=== PATIENT | female | born 1960 | race Caucasian/White ===

== ENCOUNTER 2020-12-14 06:30 | Outpatient (REF) | payer BC, SELFPAY ==
[2020-12-14 07:21] LABS: MANUAL DIFF FLAG NO
[2020-12-14 07:27] LABS: Basophils Percent Auto 0.6 % (0-2); Eosinophils Absolute Auto 0.2 X10*3/uL (0.0-0.4); Eosinophils Percent Auto 4.4 % (0-4); Hematocrit 41.4 % (37-47); Hemoglobin 14.1 g/dl (12.0-16.0); Imm Gran Abs Auto 0.03 X10*3/uL (0.00-0.03); Imm Gran Pct Auto 0.6 % (0.0-0.4); Lymphocytes Absolute Auto 2.3 X10*3/uL (1.2-4.9); Lymphocytes Percent Auto 42.2 % (20-40); Mean Corpuscular HGB Conc 34.1 g/dl (31.0-35.0); Mean Corpuscular Hemoglobin 33.1 pg (27.0-33.0); Mean Corpuscular Volume 97.2 fL (80-98); Mean Platelet Volume 9.2 fL (9.4-12.3); Monocytes Absolute Auto 0.4 X10*3/uL (0.1-1.2); Monocytes Percent Auto 7.7 % (2-11); Neutrophils Absolute Auto 2.4 X10*3/uL (2.0-8.3); Neutrophils Percent Auto 44.5 % (45-73); Platelet Count 265 X10*3/uL (160-400); Red Blood Count 4.26 X10*6/uL (4.20-5.50); Red Cell Distribution Width 12.1 % (11.0-16.0); White Blood Count 5.4 X10*3/uL (4.8-10.8)
[2020-12-14 07:55] LABS: Alanine Aminotransferase 26 U/L (0-31); Anion Gap 11 (12-20); Aspartate Amino Transferase 29 U/L (5-31); Bilirubin Total 0.7 mg/dL (0.0-1.0); Blood Urea Nitrogen 8 mg/dL (9-16); Calcium 9.2 mg/dL (8.4-10.2); Carbon Dioxide 33 mmol/L (22-29); Chloride 104 mmol/L (96-108); Estimated Glomerular Filt Rate > 60; Glucose Fasting 92 mg/dL (60-99); Potassium 4.9 mmol/L (3.3-5.1); Sodium 143 mmol/L (135-145)
[2020-12-14 07:56] LABS: Albumin Level 4.2 g/dL (3.5-5.0); Alkaline Phosphatase 90 U/L (39-117); Cholesterol 258 mg/dL; HDL Cholesterol 89 mg/dL; LDL Cholesterol Calculated 157 mg/dl; Total Protein 6.8 g/dL (6.5-8.0); Triglycerides 61 mg/dL
[2020-12-14 08:12] LABS: TSH reflex Free T4 1.99 uIU/mL (0.32-4.0)
== END 2020-12-14 06:31 | disposition home or self-care (01) ==
LOC: HO.LAB 06:30
PROVIDERS: PCP Physician Assistant; Visit Provider Physician Assistant
DX: I10 Essential (primary) hypertension (principal); E78.00 Pure hypercholesterolemia, unspecified; E78.5 Hyperlipidemia, unspecified
CPT/HCPCS: 36415; 80053; 80061; 84443; 85025

== ENCOUNTER 2021-03-01 10:16 | Outpatient (REF) | payer BC, SELFPAY ==
--- NOTE | ~2021-03-01 | XR_ITS ---
EXAMINATION: XR FOOT, LEFT CLINICAL INFORMATION: Pain. COMPARISON: None TECHNIQUE: AP, lateral, and oblique views of the left foot. FINDINGS: There are small avulsion fracture fragments proximal end proximal phalanx second and third digits with intra-articular extension. No additional fractures seen. The ankle mortise and subtalar joints are normal. The soft tissues are normal XR/XR foot LT 2V IMPRESSION: Small avulsion fracture fragments proximal end proximal phalanx second and third digits with intra-articular extension.
== END 2021-03-01 10:17 | disposition home or self-care (01) ==
LOC: HO.XRAY 10:16
PROVIDERS: PCP Physician Assistant; Visit Provider Physician Assistant
DX: M79.672 Pain in left foot (principal)
CPT/HCPCS: 73620

== ENCOUNTER 2021-09-08 09:27 | Outpatient (REF) | payer BC, SELFPAY | END 2021-09-08 09:28 | disposition home or self-care (01) | LOC: HO.HMGCLDS 09:27 | PROVIDERS: PCP Physician Assistant; Visit Provider Internal Medicine | DX: Z20.822 Contact with and (suspected) exposure to COVID-19 (principal) | CPT/HCPCS: C9803; U0003; U0005 ==

== ENCOUNTER 2021-11-14 16:46 | Outpatient (REF) | payer SELFPAY ==
--- NOTE | ~2021-11-14 | XR_ITS ---
EXAMINATION: XR HAND/WRIST, RIGHT CLINICAL INFORMATION: Pain in the right wrist. COMPARISON: None. TECHNIQUE: PA, lateral, and oblique views of the right hand and wrist. FINDINGS: Mild osteoarthritis is present at the 1st CMC joint. More minimal osteoarthritis is present at a few DIP joints, characterized by tiny marginal osteophytes primarily. No fracture or malalignment. Bones are osteopenic. Subcortical cystic changes are present in the ulnar styloid, possibly related to prior trauma or overlying tendinopathy. XR/XR hand wrist RT IMPRESSION: Mild 1st CMC osteoarthritis. No acute osseous findings.
--- NOTE | ~2021-11-14 | XR_ITS ---
EXAMINATION: XR KNEE, LEFT CLINICAL INFORMATION: Left knee pain. COMPARISON: None TECHNIQUE: AP, lateral, and both oblique views of the left knee. FINDINGS: Bones are osteopenic. Moderate-sized joint effusion. Osseous loose bodies measuring 2.3 and 0.8 cm are present at the posteromedial aspect of the knee joint. No fractures. Joint spaces appear relatively well-preserved. There is subtle cortical irregularity at the patella along with small marginal osteophytes, consistent with mild osteoarthritis. XR/XR knee LT 3V IMPRESSION: 1. Mild patellofemoral compartment osteoarthritis. 2. Two osseous loose bodies. 3. Moderate-sized joint effusion
== END 2021-11-14 16:47 | disposition home or self-care (01) ==
LOC: HO.XRAY 16:46
PROVIDERS: PCP Physician Assistant; Visit Provider Internal Medicine
DX: M25.562 Pain in left knee (principal); M25.462 Effusion, left knee; M25.531 Pain in right wrist; Z91.81 History of falling; M79.641 Pain in right hand
CPT/HCPCS: 73110; 73130; 73562

== ENCOUNTER 2022-01-03 13:27 | Outpatient (REF) | payer SELFPAY ==
--- NOTE | ~2022-01-03 | MR_ITS ---
EXAMINATION: MR KNEE WITHOUT CONTRAST, LEFT CLINICAL INFORMATION: Left knee pain and swelling. Anterior and lateral pain. Clicking and weakness. Effusion. Prior meniscal repair. COMPARISON: Most recent left knee radiographs dated 11/14/2021 and left knee MRI dated 05/26/2019. TECHNIQUE: MRI of the knee without contrast was performed using routine sequences on a high-field scanner. FINDINGS: MENISCI: Medial Meniscus: Mild inner margin blunting of the meniscal body and posterior horn which is unchanged and could represent normal variation versus sequela of prior meniscectomy. No new meniscal tear. Lateral Meniscus: Intact LIGAMENTS: Cruciate: Intact Collateral: Intact EXTENSOR MECHANISM: Intact ARTICULAR CARTILAGE/BONE: Patellofemoral Compartment: Full-thickness articular cartilage loss throughout the central patella including the patellar median ridge and medial patellar facet with mild underlying subchondral cystic change. Subchondral cystic change within both the medial most and lateral most aspect of the patella. Central and medial trochlea full-thickness articular cartilage loss. Marginal osteophytes. Overall, findings are slightly progressed when compared to the prior MRI. Medial Compartment: Weightbearing articular cartilage signal heterogeneity and surface irregularity with small marginal osteophytes, slightly progressed when compared to the prior examination. Lateral Compartment: Mild articular cartilage signal heterogeneity with tiny marginal osteophytes, progressed when compared to the prior examination. There is a sagittally oriented fracture through the lateral femoral condyle which contacts the central aspect of the articular surface and extends proximally beyond the imaged [id number]. There is prominent adjacent marrow edema as well as mild adjacent soft tissue edema. The overlying articular cartilage appears intact. JOINT FLUID AND BURSAE: Small joint effusion. Redemonstration of posteromedial ossified loose bodies measuring 1.9 cm and 0.8 cm. MR/MR knee LT wo con IMPRESSION: 1. Nondisplaced, sagittally oriented fracture through the central aspect of the lateral femoral condyle which extends from the articular surface proximally beyond the imaged [id number] into the diaphysis. The overlying articular cartilage is intact. 2. Mild inner margin blunting of the medial meniscal body and posterior horn which is unchanged and could represent normal variation versus prior meniscectomy. No acute meniscal tear. 3. Moderate patellofemoral as well as mild medial and lateral compartment osteoarthritis, progressed when compared to the prior examination. Small joint effusion. Posteromedial loose bodies measuring 1.9 cm and 0.8 cm.
== END 2022-01-03 13:28 | disposition home or self-care (01) ==
LOC: HO.MRI 13:27
PROVIDERS: Visit Provider Physician Assistant
DX: M25.462 Effusion, left knee (principal); S83.207A Unspecified tear of unspecified meniscus, current injury, left knee, initial encounter; W18.30XA Fall on same level, unspecified, initial encounter; Y93.9 Activity, unspecified; Y92.9 Unspecified place or not applicable; Y99.8 Other external cause status
CPT/HCPCS: 73721

== ENCOUNTER 2023-02-01 06:29 | Outpatient (REF) | payer OTHER, SELFPAY ==
--- NOTE | ~2023-02-01 | XR_ITS ---
EXAMINATION: XR KNEE, LEFT CLINICAL INFORMATION: Meniscal tear COMPARISON: Radiographs dated 11/15/2021; MRI left knee dated 01/03/2022. TECHNIQUE: AP, lateral and sunrise views of the left knee. FINDINGS: There is bony demineralization. The lateral, medial and patellofemoral joint space compartments are well-maintained. A nondisplaced fracture is again seen extending through the lateral femoral condyle, most apparent on the axial view. No dislocation is seen. There is a small joint effusion. The lateral, medial and patellofemoral joint space compartments are well-maintained. A 1.8 cm loose body is redemonstrated within the posteromedial joint space. There is anterior soft tissue swelling. No foreign body is noted. XR/XR knee LT 3V IMPRESSION: 1. A nondisplaced fracture is redemonstrated of the lateral femoral condyle. 2. There is a small joint effusion. 3. A 1.8 cm loose body is redemonstrated within the posteromedial joint space.
[2023-02-01 07:45] LABS: Hematocrit 39.3 % (37.0-47.0); Mean Corpuscular HGB Conc 33.1 g/dl (31.0-35.0); Mean Corpuscular Volume 99.7 fL (80.0-98.0); Mean Platelet Volume 9.6 fL (9.4-12.3); Platelet Count 323 X10*3/uL (160-400); Red Blood Count 3.94 X10*6/uL (4.20-5.50); Red Cell Distribution Width 12.2 % (11.0-16.0); White Blood Count 5.5 X10*3/uL (4.8-10.8)
[2023-02-01 08:12] LABS: Alanine Aminotransferase 14 U/L (0-31); Albumin Level 3.9 g/dL (3.5-5.0); Alkaline Phosphatase 121 U/L (39-117); Anion Gap 16 (12-20); Aspartate Amino Transferase 18 U/L (5-31); Bilirubin Total 0.5 mg/dL (0.0-1.0); Blood Urea Nitrogen 10 mg/dL (9-16); Calcium 9.2 mg/dL (8.4-10.2); Carbon Dioxide 27 mmol/L (22-29); Chloride 106 mmol/L (96-108); Cholesterol 220 mg/dL; Estimated Glomerular Filt Rate > 60; Glucose Fasting 89 mg/dL (60-99); HDL Cholesterol 78 mg/dL; LDL Cholesterol Calculated 125 mg/dl; Potassium 4.6 mmol/L (3.3-5.1); Sodium 144 mmol/L (135-145); Total Protein 6.2 g/dL (6.5-8.0); Triglycerides 86 mg/dL
[2023-02-01 08:29] LABS: TSH reflex Free T4 1.81 uIU/mL (0.32-4.0)
== END 2023-02-01 06:30 | disposition home or self-care (01) ==
LOC: HO.XRAY 06:29
PROVIDERS: PCP Physician Assistant; Visit Provider Physician Assistant
DX: E78.00 Pure hypercholesterolemia, unspecified (principal); M25.462 Effusion, left knee; S83.207A Unspecified tear of unspecified meniscus, current injury, left knee, initial encounter; W19.XXXA Unspecified fall, initial encounter; Y93.9 Activity, unspecified; Y92.9 Unspecified place or not applicable; Y99.9 Unspecified external cause status
CPT/HCPCS: 36415; 73562; 80053; 80061; 84443; 85027

== ENCOUNTER 2023-04-24 13:57 | Outpatient (AMB) | payer SELFPAY ==
[2023-04-24 13:58] VITALS: BP 112/70; PULSE 71; O2SAT 97; BMI 27.2
--- NOTE | 2023-04-24 13:58 | MHC.PC.OV ---
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: No Accompanied by: Self / Same As Patient Allergies colchicine [COLCHICINE] Allergy (Mild, Verified 04/24/23 14:08) DIARRHEA baclofen Allergy (Unknown, Verified 04/24/23 14:08) GI upset NSAIDS (Non-Steroidal Anti-Inflamma [NSAIDS (NON-STEROIDAL ANTI-INFLAMMA] Allergy (Unknown, Verified 04/24/23 14:08) SEVERE DIARRHEA paroxetine [Paxil] Allergy (Unknown, Verified 04/24/23 14:08) Increased Anger tizanidine Allergy (Unknown, Verified 04/24/23 14:08) GI upset varenicline [From Chantix] Adverse Reaction (Intermediate, Verified 04/24/23 14:08) mouth soars Medication List - Last Reconciled 04/24/23 by Henri Davidson PA-C buspirone 5 mg PO TID 30 days clonazepam 2 mg (2 x 1 mg) PO DAILY 30 days escitalopram oxalate (Lexapro) 20 mg PO DAILY 30 days gabapentin 600 mg PO TID 30 days tramadol 50 mg PO Q8H 15 days Tobacco use date assessed: 04/24/23 Dental Screening Dental Screen Date: 04/24/23 Did you have a dental visit in the last 12 months?: No Did you have a dental problem in the last 6 months where you did not have access to dental care?: No Was dental information given to patient?: Patient has dentist HPI Lump on left ankle HPI Details Patient is 62-year-old female here today for problem visit. Patient has a past medical history significant for generalized anxiety disorder, major depressive disorder, chronic lumbar spine pain , tobacco dependency and hyperlipidemia. reports having right lower extremity and ankle swelling over the last 4 weeks. She denies any injury to her left ankle or lower extremity. She reports it is difficult/painful to bear full weight on the left lower extremity. She also reports having some abdominal bloating over the same amount of time. She denies any fevers, diarrhea, constipation or vomiting. She does admit to drinking alcohol though not to excess. She does report recently falling at work and injuring her left wrist and now out of work on a worker's Comp claim. REPLACED BY [facility] Medical History LEXY (generalized anxiety disorder) Lumbar degenerative disc disease MDD (major depressive disorder), recurrent episode, moderate Post traumatic stress disorder (PTSD) Surgical History History of ankle surgery History of arthroscopic knee surgery Family History Father Leukemia Mother No problems noted. Brother CVA (cerebral vascular accident) A-fib Sister Rheumatoid arthritis Social History Housing: House Alcohol intake: never Patient Tobacco Use Status: Current everyday Tobacco user Tobacco use type: Cigarette Cigarette Packs Per Day: 0.5 Cigarettes Per Day: 10 e-Cigarette/Vaping Use: Never Used Second Hand Smoke Exposure: No service: No Current occupational status: unemployed Cognitive needs: No Hearing needs: No Vision needs: Yes (Glasses) Questionnaire PHQ-9 Over the last 2 weeks, how often have you been bothered by any of the following problems? 1. Little interest or pleasure in doing things: more than half the days 2. Feeling down, depressed, or hopeless: more than half the days 3. Trouble falling or staying asleep, or sleeping too much: not at all 4. Feeling tired or having little energy: more than half the days 5. Poor appetite or overeating: not at all 6. Feeling bad about yourself - or that you are a failure or have let yourself or your family down: nearly every day 7. Trouble concentrating on things, such as reading the newspaper or watching television: nearly every day 8. Moving or speaking so slowly that other people could have noticed. Or the opposite - being so fidgety or restless that you have been moving around a lot more than usual: several days 9. Thoughts that you would be better off or of hurting yourself in some way: several days Total score: 14 Depression Screening Interpretation: Negative Source: Developed by Drs. Reji Aragon, ArleenEdwin Bloom and colleagues, with an educational jose from [employer]. Thrive Questionnaire Date Thrive assessed: 04/24/23 I am a: Patient What is your living situation today?: I have a steady place to live Within the past 12 months, did the food you bought not last and you didn't have the money to get more?: Never true Within the past 12 months, did you worry whether your food would run out before you got money to buy more?: Never true Do you have trouble paying for medicines?: No Do you have trouble getting transportation to medical appointments?: No Do you have trouble paying your heating and electricity bill?: No Do you have trouble taking care of your child, family member or friend?: No Do you have trouble with day-to-day activities such as bathing, preparing meals, shopping, managing finances, etc.?: No Are you currently unemployed and looking for a job?: No Are you interested in more education?: No Please select the resources that you would like help with: None Currently or been in a relationship where the following occur: no concerns reported AUDIT C Alcohol Use Questionnaire (AUDIT-C) 1. How often do you have a drink containing alcohol?: Never 3. How often do you have six or more drinks on one occasion?: Never Total Score: 0 LEXY-7 AMB Questionnaire LEXY-7 Date LEXY - 7 assessed: 04/24/23 Feeling nervous, anxious, or on edge: 2 = More than half the days Not being able to stop or control worryin = More than half the days Worrying too much about different things: 2 = More than half the days Trouble relaxin = Nearly every day Being so restless that it is hard to sit still: 3 = Nearly every day Becoming easily annoyed or irritable: 0 = Not at all Feeling afraid as if something awful might happen: 1 = Several days Total LEXY-7 score (0-4 normal; 5-9 mild; 10-14 moderate; 15-21 severe): 13 Source: Developed by Drs. Reji Aragon, Edwin Fung and colleagues, with an educational jose from [employer]. Review of Systems Const Denies headache(s) Eyes Denies loss of vision ENT Denies vertigo, Denies dizziness, Denies headache(s) and Denies sore throat Card Denies chest pain, Denies leg edema and Denies lightheadedness Resp Denies cough, Denies hemoptysis and Denies wheezing GI Denies abdominal pain, Denies melena, Denies constipation, Denies diarrhea and Denies vomiting Denies urinary frequency, Denies dysuria and Denies urinary urgency Musc Denies arthralgias, Denies joint swelling, Denies numbness and Denies tingling Neuro Denies Abnormal speech present, Denies behavioral changes, Denies vertigo, Denies dizziness, Denies headache(s), Denies loss of vision, Denies memory loss, Denies numbness and Denies tingling Psych Denies anxiety, Denies behavioral changes, Denies depression, Denies memory loss and Denies panic attacks Alireza/Lymph Denies easy bleeding and Denies easy bruising Aller/Immun Denies wheezing Physical exam (Primary Care) Vital Signs: Last Vital Signs Pulse 71 04/24/23 13:58 BP 112/70 04/24/23 13:58 Pulse Ox 97 04/24/23 13:58 Oxygen Delivery Method Room Air 04/24/23 13:58 BMI result Body Mass Index 27.2 Tobacco/Smoking Status: Tobacco use Status Tobacco use date assessed 04/24/23 04/24/23 14:07 Patient Tobacco Use Status Current everyday Tobacco 04/24/23 14:07 Tobacco use type Cigarette 04/24/23 14:07 e-Cigarette/Vaping Use Never Used 04/24/23 14:07 PHQ-9: PHQ-9 Score PHQ-9: Total score 14 04/24/23 14:15 Depression Screening Interpretation: Negative Thrive Assessment: Date of Thrive Assessment Date Thrive assessed 04/24/23 04/24/23 14:07 Currently or been in a relationship where the following occur: no concerns reported Const General: healthy appearing, no acute distress, alert and awake Nutritional Appearance: well nourished Orientation/consciousness: oriented to person, oriented to place and oriented to time HENMT Ears: TM's normal bilaterally General nose exam: Normal nasal mucous membranes and turbinates present Eyes Conjunctivae: conjunctivae normal Sclerae: sclerae normal Pupils: Equal, round and reactive pupils present Neck Neck: Yes no lymphadenopathy and Yes no JVD Thyroid: Thyroid normal Carotids: no bruits Resp Effort & Inspection: normal respiratory effort and not tachypneic Auscultation: no crackles, no rales, no rhonchi and no wheezes Cardio Rate: regular rate Rhythm: regular rhythm Heart sounds: no murmurs and normal S1 and S2 GI Other: Mildly distended Inspection: Yes distended Palpation (GI): Soft to palpation, Tenderness to palpation present (GI), no hepatomegaly and no splenomegaly Auscultation: normal bowel sounds Skin General skin exam: no rashes or lesions noted and dry skin Neuro General: oriented to person, oriented to place and oriented to time Cranial nerves: Yes Equal, round and reactive pupils present Speech: No Abnormal speech present Gait exam (Neuro): Normal gait present Motor exam (neuro): no tremor noted Extrem Other: LEFT LOWER EXTREMITY LARGE IN DIAMETER COMPARED TO RIGHT LOWER EXTREMITY. NOTED LOCALIZED SWELLING OVER THE LEFT LATERAL MALLEOLUS. Right upper extremity: full ROM Left upper extremity: full ROM Right lower extremity: full ROM; no edema Left lower extremity: full ROM; no edema Psych Mental Status: mental status grossly normal Speech and movement: Normal speech and movement present Affect: normal affect Attitude: cooperative Thought process: Normal thought process present Assessment and Plan Assessment & Plan (1) Abdominal bloating: Code(s): R14.0 - Abdominal distension (gaseous) Plan: Patient reports a 4 week history of abdominal bloating. Physical exam her abdomen does seem somewhat distended, no abdominal guarding or evidence of any acute abdomen.. No reports of GERD symptoms, vomiting, diarrhea or constipation. Will send for labs and ultrasound of abdomen to evaluate her abdominal bloating. (2) Localized swelling of left lower extremity: Code(s): R22.42 - Localized swelling, mass and lump, left lower limb Plan: Patient with left lower extremity acute swelling over last 3 weeks. Will send for urgent ultrasound to evaluate for DVT. Patient is a smoker and thus has risk. Orders: Orders Lipase Today R14.0 - Abdominal distension (gaseous) Liver Panel Today R14.0 - Abdominal distension (gaseous) US abdomen complete Today R14.0 - Abdominal distension (gaseous) US venous duplex LE LT Today R22.42 - Localized swelling, mass and lump, left lower limb Complete Blood Count no Diff Today R60.0 - Localized edema Ethanol Today R14.0 - Abdominal distension (gaseous) Medications: New furosemide 20 mg PO DAILY 10 days 10 tabs 0RF R60.0 - Localized edema Coding Level of Care Code Est Pt Level 4 (44250) Diagnoses Abdominal bloating R14.0 Localized swelling of left lower extremity R22.42
== END 2023-04-24 14:37 | disposition home or self-care (01) ==
PROVIDERS: PCP Physician Assistant; Visit Provider Physician Assistant
DX: R14.0 Abdominal distension (gaseous) (principal); R22.42 Localized swelling, mass and lump, left lower limb
CPT/HCPCS: 99214

== ENCOUNTER 2023-04-25 15:19 | Outpatient (REF) | payer SELFPAY ==
--- NOTE | ~2023-04-25 | US_ITS ---
EXAMINATION: US VENOUS ULTRASOUND WITH DOPPLER LOWER EXTREMITY, LEFT CLINICAL INFORMATION: Left lower extremity edema and pain COMPARISON: None available. TECHNIQUE: Ultrasound of the deep veins is performed from the hip to the calf with compression sonography and color and pulse Doppler assessment. Spectral analysis with color-flow imaging is performed. FINDINGS: There is normal venous compression and respiratory variation and augmented flow. The visualized common femoral vein, superficial femoral vein, profunda femoral vein, popliteal vein, and the trifurcation region shows no evidence of deep venous thrombosis. There is no significant popliteal fossa cyst. The contralateral right femoral vein appears normal If the patient's symptoms persist, followup ultrasound in 5 days 7 days might be of value to exclude proximal propagation from a non-visualized calf vein. US/US venous duplex LE IMPRESSION: No DVT demonstrated in the left lower extremity.
[2023-04-25 17:07] LABS: Hematocrit 42.5 % (37.0-47.0); Hemoglobin 14.3 g/dl (12.0-16.0); Mean Corpuscular HGB Conc 33.6 g/dl (31.0-35.0); Mean Corpuscular Hemoglobin 33.3 pg (27.0-33.0); Mean Corpuscular Volume 98.8 fL (80.0-98.0); Mean Platelet Volume 9.1 fL (9.4-12.3); Platelet Count 285 X10*3/uL (160-400); White Blood Count 7.5 X10*3/uL (4.8-10.8)
[2023-04-25 18:05] LABS: Alanine Aminotransferase 29 U/L (0-31); Albumin Level 3.8 g/dL (3.5-5.0); Alkaline Phosphatase 147 U/L (39-117); Aspartate Amino Transferase 26 U/L (5-31); Bilirubin Direct 0.2 mg/dL (0.0-0.5); Bilirubin Total 0.6 mg/dL (0.0-1.0); Ethanol 167 mg/dL; Lipase 13 U/L (8-78); Total Protein 6.5 g/dL (6.5-8.0)
== END 2023-04-25 15:20 | disposition home or self-care (01) ==
LOC: HO.US 15:19
PROVIDERS: PCP Physician Assistant; Visit Provider Physician Assistant
DX: R22.42 Localized swelling, mass and lump, left lower limb (principal); R14.0 Abdominal distension (gaseous); Z86.59 Personal history of other mental and behavioral disorders
CPT/HCPCS: 36415; 80076; 80307; 83690; 85027; 93971

== ENCOUNTER 2023-08-13 13:11 | Outpatient (AMB) | payer SELFPAY ==
--- NOTE | 2023-08-13 13:17 | A.OFFPC_ITS ---
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: No Delivery Lead: Not Required per policy Accompanied by: Self / Same As Patient Allergies colchicine [COLCHICINE] Allergy (Mild, Verified 08/13/23 13:29) DIARRHEA baclofen Allergy (Unknown, Verified 08/13/23 13:29) GI upset NSAIDS (Non-Steroidal Anti-Inflamma [NSAIDS (NON-STEROIDAL ANTI-INFLAMMA] Allergy (Unknown, Verified 08/13/23 13:29) SEVERE DIARRHEA paroxetine [Paxil] Allergy (Unknown, Verified 08/13/23 13:29) Increased Anger tizanidine Allergy (Unknown, Verified 08/13/23 13:29) GI upset varenicline [From Chantix] Adverse Reaction (Intermediate, Verified 08/13/23 13:29) mouth soars Medication List - Last Reconciled 08/13/23 by Henri Davidson PA-C citalopram (Celexa) 40 mg PO DAILY 90 days clonazepam 2 mg (2 x 1 mg) PO BEDTIME 30 days gabapentin 600 mg PO TID 30 days tramadol 50 mg PO Q8H 15 days Tobacco use date assessed: 08/13/23 Dental Screening Dental Screen Date: 08/13/23 Did you have a dental visit in the last 12 months?: No Did you have a dental problem in the last 6 months where you did not have access to dental care?: No Was dental information given to patient?: No HPI pain contract ,urine drug test 2 HPI0 Details Patient is a 62-year-old female here today for a follow-up visit.. Patient has a past medical history significant for generalized anxiety disorder, Tobacco use disorder, chronic neck and back pain. Unfortunately has been having issues unsure incident has been on off in the primary care office. Concerns--> has had 2 scaphoid fractures due to falls, 1 fall resulting at work. has a scaphoid fracture that she has been seeing a hand surgeon who was recommending surgery to repair the scaphoid bone to which she is contemplating. Tobacco dependency: reports she is smoking more cigarettes lately due to a recent in her family and being more depressed and anxious. .. Depression:? She reports she has been more depressed lately due to her health issues and financial issues. Has been on Celexa 40 mg though does not find that is helpful. She would like to try a new antidepressant medication. PLAN: Willing to transition to [facility], still considering seeing a mental health therapist. .. Chronic cervical/ lumbar spine pain: Continues to have lumbar spine pain to which she report tramadol works somewhat. Xrays of lumbar spine --> there is mild ventral spondylosis throughout lumbar spine. also in review of MRI abd showing There is a mild old-appearing L1 vertebral body compression fracture. She also does have moderate to severe cervical spondylosis and spine stenosis. Was seen by a surgeon in the past whom recommended surgery though patient declined. She continues to use tramadol 50 mg q.8 hours in gabapentin 600 t.i.d. with good relief of her pain. We did discuss the habit-forming nature of this medication and patient does understands the need to wean down on dose. Today signed drug contract and did urine drug screen. [facility] Medical History (Updated 08/13/23 @ 13:32 by Henri Davidson PA-C) Femur fracture, left Acute meniscal tear of left knee Lumbar degenerative disc disease MDD (major depressive disorder), recurrent episode, moderate Post traumatic stress disorder (PTSD) LEXY (generalized anxiety disorder) Surgical History History of arthroscopic knee surgery History of ankle surgery Family History Father Leukemia Mother No problems noted. Brother CVA (cerebral vascular accident) A-fib Sister Rheumatoid arthritis Social History Housing: House Alcohol intake: never Patient Tobacco Use Status: Current everyday Tobacco user Tobacco use type: Cigarette Cigarette Packs Per Day: 0.5 Cigarettes Per Day: 10 e-Cigarette/Vaping Use: Never Used Second Hand Smoke Exposure: No service: No Current occupational status: unemployed Cognitive needs: No Hearing needs: No Vision needs: Yes (Glasses) Questionnaire Thrive Questionnaire Date Thrive assessed: 04/24/23 LEXY-7 AMB Questionnaire LEXY-7 Date LEXY - 7 assessed: 04/24/23 Source: Developed by Drs. Reji Aragon, Arleen Murry, Edwin Aguero and colleagues, with an educational jose from [employer]. Review of Systems Const Denies headache(s) Eyes Denies loss of vision ENT Denies vertigo, Denies dizziness, Denies headache(s) and Denies sore throat Card Denies chest pain, Denies leg edema and Denies lightheadedness Resp Denies cough, Denies hemoptysis and Denies wheezing GI Denies abdominal pain, Denies melena, Denies constipation, Denies diarrhea and Denies vomiting Denies urinary frequency, Denies dysuria and Denies urinary urgency Musc Denies arthralgias, Denies joint swelling, Denies numbness and Denies tingling Neuro Denies Abnormal speech present, Denies behavioral changes, Denies vertigo, Denies dizziness, Denies headache(s), Denies loss of vision, Denies memory loss, Denies numbness and Denies tingling Psych Denies anxiety, Denies behavioral changes, Denies depression, Denies memory loss and Denies panic attacks Alireza/Lymph Denies easy bleeding and Denies easy bruising Aller/Immun Denies wheezing Physical exam (Primary Care) Vital Signs: Last Vital Signs Pulse 65 08/13/23 13:18 BP 120/78 08/13/23 13:18 Pulse Ox 98 08/13/23 13:18 Oxygen Delivery Method Room Air 08/13/23 13:18 BMI result Body Mass Index 28.0 Tobacco/Smoking Status: Tobacco use Status Tobacco use date assessed 08/13/23 08/13/23 13:23 Patient Tobacco Use Status Current everyday Tobacco 08/13/23 13:23 Tobacco use type Cigarette 08/13/23 13:23 e-Cigarette/Vaping Use Never Used 08/13/23 13:23 Are you ready to quit: No Tobacco cessation counseling provided: Yes Items discussed: Nicotine replacement Relapse Prevention: discussed the importance of a supportive environment, discussed negative mood or depression after quitting, weight gain after smoking is common and discussed dietary, exercise and/or lifestyle changes Number of minutes spent counselin CPT code: 29748 - 4-10 Minutes Thrive Assessment: Date of Thrive Assessment Date Thrive assessed 04/24/23 08/13/23 13:23 Const General: healthy appearing, no acute distress, alert and awake Nutritional Appearance: well nourished Orientation/consciousness: oriented to person, oriented to place and oriented to time HENMT Ears: TM's normal bilaterally General nose exam: Normal nasal mucous membranes and turbinates present Eyes Conjunctivae: conjunctivae normal Sclerae: sclerae normal Pupils: Equal, round and reactive pupils present Neck Neck: Yes no lymphadenopathy and Yes no JVD Thyroid: Thyroid normal Carotids: no bruits Resp Effort & Inspection: normal respiratory effort and not tachypneic Auscultation: no crackles, no rales, no rhonchi and no wheezes Cardio Rate: regular rate Rhythm: regular rhythm Heart sounds: no murmurs and normal S1 and S2 GI Palpation (GI): Soft to palpation, nontender, no hepatomegaly and no splenomegaly Auscultation: normal bowel sounds Skin General skin exam: no rashes or lesions noted and dry skin Neuro General: oriented to person, oriented to place and oriented to time Cranial nerves: Yes Equal, round and reactive pupils present Speech: No Abnormal speech present Gait exam (Neuro): Normal gait present Motor exam (neuro): no tremor noted Extrem Right upper extremity: full ROM Left upper extremity: full ROM Hand/finger images: 2 1. LOCALIZED SWELLING OVER THE LEFT WRIST Right lower extremity: full ROM; no edema Left lower extremity: full ROM; no edema Psych Mental Status: mental status grossly normal Speech and movement: Normal speech and movement present Affect: normal affect Attitude: cooperative Thought process: Normal thought process present Assessment and Plan Assessment & Plan (1) Lumbar radiculopathy, chronic: Code(s): M54.16 - Radiculopathy, lumbar region Plan: Patient has a chronic history of cervical and lumbar spine pain. Imaging does show cervical disc disease. She does use gabapentin 600 and tramadol 50 mg q.8 hours her pain. Currently not interested in seeing pain management at this time. She did sign a drug contract and urine drug screen today. (2) LEXY (generalized anxiety disorder): Code(s): F41.1 - Generalized anxiety disorder Plan: She reports her anxiety has not been well controlled as of late. She would like to transition to new SSRI therapy. (3) MDD (major depressive disorder), recurrent episode, moderate: Code(s): F33.1 - Major depressive disorder, recurrent, moderate Plan: Patient's depression has not been well controlled as of late. Continues on Celexa 40 mg though would like to try different medication as she does not feel that Celexa as effective. She is willing to transition to Prozac 20 mg. She still considering seeing a mental health therapist for further talk there treatment (4) Smoker: Code(s): F17.200 - Nicotine dependence, unspecified, uncomplicated Plan: Unfortunately continues to smoke and patient does understand she needs to quit. She has found it very difficult to quit. Orders: Orders 2 Drug Screen Urine Today M54.16 - Radiculopathy, lumbar region Medications: New 2 fluoxetine (Prozac) 20 mg PO DAILY 90 caps 1RF F33.1 - Major depressive disorder, recurrent, moderate Changed 2 From tramadol 50 mg PO Q8H 15 days 45 tabs 0RF M54.16 - Radiculopathy, lumbar region To tramadol 50 mg PO Q8H 28 days PRN 84 tabs 3RF pain M54.16 - Radiculopathy, lumbar region Discontinued 2 citalopram (Celexa) Discontinued Reason: Doctor's Order 40 mg PO DAILY 90 days 90 tabs 1RF F41.1 - Generalized anxiety disorder Coding Level of Care Code Est Pt Level 4 (06317) Diagnoses Lumbar radiculopathy, chronic M54.16 LEXY (generalized anxiety disorder) F41.1 MDD (major depressive disorder), recurrent episode, moderate F33.1 Smoker F17.200 Additional Codes Vital Signs *Quality* - CPT code: 24720 - 4-10 Minutes ([id number])
[2023-08-13 13:18] VITALS: BP 120/78; PULSE 65; O2SAT 98; BMI 28.0
== END 2023-08-13 15:27 | disposition home or self-care (01) ==
PROVIDERS: PCP Physician Assistant; Visit Provider Physician Assistant
DX: M54.16 Radiculopathy, lumbar region (principal); F41.1 Generalized anxiety disorder; F33.1 Major depressive disorder, recurrent, moderate; F17.200 Nicotine dependence, unspecified, uncomplicated
CPT/HCPCS: 99214; 99406

== ENCOUNTER 2023-08-13 14:56 | Outpatient (REF) | payer SELFPAY ==
[2023-08-13 15:45] LABS: Amphetamine Screen Urine Not Detected (Not Detect); Barbiturates, Urine Not Detected (Not Detect); Benzodiazepines Screen Urine Not Detected (Not Detect); Cannabinoid Screen Urine Not Detected (Not Detect); Cocaine Screen Urine Not Detected (Not Detect); Fentanyl, urine Not Detected (Not Detect); Opiate Screen Urine Not Detected (Not Detect); Phencyclidine Screen Urine Not Detected (Not Detect)
== END 2023-08-13 14:57 | disposition home or self-care (01) ==
LOC: HO.LNP 14:56
PROVIDERS: Visit Provider Physician Assistant
DX: M54.16 Radiculopathy, lumbar region (principal); F11.20 Opioid dependence, uncomplicated
CPT/HCPCS: 80307

== ENCOUNTER 2023-10-30 09:18 | Outpatient (AMB) | payer SELFPAY ==
--- NOTE | 2023-10-30 09:09 | A.OFFPC_ITS ---
Vital Signs 10/30/23 09:10 Height 5 ft 8 in Weight 178 lb BMI 27.1 Intake Visit Reasons: [facility]/ABEBE-Suicidal Allergies colchicine [COLCHICINE] Allergy (Mild, Verified 10/30/23 09:43) DIARRHEA baclofen Allergy (Unknown, Verified 10/30/23 09:43) GI upset NSAIDS (Non-Steroidal Anti-Inflamma [NSAIDS (NON-STEROIDAL ANTI-INFLAMMA] Allergy (Unknown, Verified 10/30/23 09:43) SEVERE DIARRHEA paroxetine [Paxil] Allergy (Unknown, Verified 10/30/23 09:43) Increased Anger tizanidine Allergy (Unknown, Verified 10/30/23 09:43) GI upset fluoxetine [From Prozac] Adverse Reaction (Intermediate, Verified 10/30/23 09:46) Depression varenicline [From Chantix] Adverse Reaction (Intermediate, Verified 10/30/23 09:43) mouth soars Medication List - Last Reconciled 10/30/23 by Henri Davidson PA-C citalopram (Celexa) 40 mg PO DAILY clonazepam 2 mg (2 x 1 mg) PO BEDTIME 30 days gabapentin 600 mg PO TID 30 days tramadol 50 mg PO Q8H PRN 28 days Tobacco use date assessed: 10/30/23 Dental Screening Dental Screen Date: 10/30/23 Did you have a dental visit in the last 12 months?: No Did you have a dental problem in the last 6 months where you did not have access to dental care?: No Was dental information given to patient?: Patient has dentist HPI [facility]/[place]-Suicidal HPI Details Patient is a 63-year-old female being evaluated today via telephone. Recently admitted to [facility] for psychiatric crisis having suicide ideation after she was fired from her job and started excessively drinking alcohol. She does report doing rehab for a 10 day stent and was placed on Suboxone during that time. She is now feeling better and now taking Celexa 40 mg on a daily basis. She is off Suboxone and like to return back to using her normal dose of tramadol for her chronic cervical, lumbar and knee pain. She is currently in worker's Comp and will be seeing a orthopedic surgeon for her left scaphoid fracture and anticipates surgery and getting back to work this spring and summer of 2023. [facility] Medical History (Updated 10/30/23 @ 09:53 by Henri Davidson PA-C) Femur fracture, left Acute meniscal tear of left knee Lumbar degenerative disc disease MDD (major depressive disorder), recurrent episode, moderate Post traumatic stress disorder (PTSD) LEXY (generalized anxiety disorder) Surgical History History of arthroscopic knee surgery History of ankle surgery Family History Father Leukemia Mother No problems noted. Brother CVA (cerebral vascular accident) A-fib Sister Rheumatoid arthritis Social History Housing: House Alcohol intake: never Patient Tobacco Use Status: Current everyday Tobacco user Tobacco use type: Cigarette Cigarette Packs Per Day: 0.5 Cigarettes Per Day: 10 e-Cigarette/Vaping Use: Never Used Second Hand Smoke Exposure: No service: No Current occupational status: unemployed Cognitive needs: No Hearing needs: No Vision needs: Yes (Glasses) Questionnaire PHQ-9 Over the last 2 weeks, how often have you been bothered by any of the following problems? 1. Little interest or pleasure in doing things: more than half the days 2. Feeling down, depressed, or hopeless: more than half the days 3. Trouble falling or staying asleep, or sleeping too much: not at all 4. Feeling tired or having little energy: more than half the days 5. Poor appetite or overeating: not at all 6. Feeling bad about yourself - or that you are a failure or have let yourself or your family down: nearly every day 7. Trouble concentrating on things, such as reading the newspaper or watching television: nearly every day 8. Moving or speaking so slowly that other people could have noticed. Or the opposite - being so fidgety or restless that you have been moving around a lot more than usual: several days 9. Thoughts that you would be better off or of hurting yourself in some way: several days Total score: 14 Depression Screening Interpretation: Positive Depression Screening Follow-up: Existing condition, In treatment and Declines treatment Depression Screening Done: Yes 59960 - PHQ-9 Billing: Yes Source: Developed by Drs. Reji Aragon, Edwin Fung and colleagues, with an educational jose from [employer]. Thrive Questionnaire Date Thrive assessed: 10/30/23 I am a: Patient What is your living situation today?: I have a steady place to live Within the past 12 months, did the food you bought not last and you didn't have the money to get more?: Never true Within the past 12 months, did you worry whether your food would run out before you got money to buy more?: Never true Do you have trouble paying for medicines?: No Do you have trouble getting transportation to medical appointments?: No Do you have trouble paying your heating and electricity bill?: No Do you have trouble taking care of your child, family member or friend?: No Do you have trouble with day-to-day activities such as bathing, preparing meals, shopping, managing finances, etc.?: No Are you currently unemployed and looking for a job?: No Are you interested in more education?: No Please select the resources that you would like help with: None THRIVE Score: 0 AUDIT C Alcohol Use Questionnaire (AUDIT-C) 1. How often do you have a drink containing alcohol?: Never 3. How often do you have six or more drinks on one occasion?: Never Total Score: 0 LEXY-7 AMB Questionnaire LEXY-7 Date LEXY - 7 assessed: 10/30/23 Feeling nervous, anxious, or on edge: 0 = Not at all Not being able to stop or control worryin = Not at all Worrying too much about different things: 0 = Not at all Trouble relaxin = Not at all Being so restless that it is hard to sit still: 0 = Not at all Becoming easily annoyed or irritable: 0 = Not at all Feeling afraid as if something awful might happen: 0 = Not at all Total LEXY-7 score (0-4 normal; 5-9 mild; 10-14 moderate; 15-21 severe): 0 Source: Developed by Drs. Reji Aragon, Edwin Fung and colleagues, with an educational jose from [employer]. LEXY-7 Assessment Billing LEXY-7 Assessment Tool: LEXY-7 Assessment 04497 Review of Systems Const Denies headache(s) Eyes Denies loss of vision ENT Denies vertigo, Denies dizziness, Denies headache(s) and Denies sore throat Card Denies chest pain, Denies leg edema and Denies lightheadedness Resp Denies cough, Denies hemoptysis and Denies wheezing GI Denies abdominal pain, Denies melena, Denies constipation, Denies diarrhea and Denies vomiting Denies urinary frequency, Denies dysuria and Denies urinary urgency Musc Denies arthralgias, Denies joint swelling, Denies numbness and Denies tingling Neuro Denies behavioral changes, Denies vertigo, Denies dizziness, Denies headache(s), Denies loss of vision, Denies memory loss, Denies numbness and Denies tingling Psych Denies anxiety, Denies behavioral changes, Denies depression, Denies memory loss and Denies panic attacks Alireza/Lymph Denies easy bleeding and Denies easy bruising Aller/Immun Denies wheezing Physical exam (Primary Care) BMI result Body Mass Index 27.1 Tobacco/Smoking Status: Tobacco use Status Tobacco use date assessed 10/30/23 10/30/23 09:12 Patient Tobacco Use Status Current everyday Tobacco 10/30/23 09:12 Tobacco use type Cigarette 10/30/23 09:12 e-Cigarette/Vaping Use Never Used 10/30/23 09:12 PHQ-9: PHQ-9 Score PHQ-9: Total score 14 10/30/23 09:12 Depression Screening Interpretation: Positive Depression Screening Follow-up: Existing condition, In treatment and Declines treatment Thrive Assessment: Date of Thrive Assessment Date Thrive assessed 10/30/23 10/30/23 09:12 Telehealth Telehealth Location of provider rendering services: practice address Location of patient: address on file Patient Identification confirmed using: Name, : Yes Telehealth method: voice only Patient verbally consented to treatment: Yes Patient verbally consented to billing insurance company: Yes Patient informed of any privacy concerns related to visit: Yes Minutes spent on Phone/Video with Pt.: 15 Assessment and Plan Assessment & Plan (1) MDD (major depressive disorder), recurrent episode, moderate: Code(s): F33.1 - Major depressive disorder, recurrent, moderate Plan: Patient's PHQ-9 score positive for depression which has been existing condition for her. She would like to see a mental health therapist though at this time does not insurance and has been working on getting new insurance. She continues on Celexa 40 mg which has been helpful for her mental health. Of note was started on Prozac a few months back and believes has caused her depression get worse. (2) LEXY (generalized anxiety disorder): Code(s): F41.1 - Generalized anxiety disorder Plan: Patient's LEXY-7 score positive for anxiety which has been an existing condition for her. Again would like to see a mental health therapist though is awaiting to getting new insurance. (3) Fracture of scaphoid of left wrist: Code(s): S62.002A - Unspecified fracture of navicular [scaphoid] bone of left wrist, i nitial encounter for closed fracture Qualifiers: Encounter type: subsequent encounter Scaphoid bone location: unspecified portion of scaphoid Fracture type: closed Fracture alignment: displaced Fracture healing: with delayed healing Qualified Code(s): S62.002G - Unspecified fracture of navicular [scaphoid] bone of left wrist, subsequent encounter for fracture with delayed healing Plan: Has a left scaphoid fracture that required surgery. This was a work-related injury. Unfortunately fired from her job recently thus perhaps caused worsening depression.. Is awaiting worker's Comp claim to see another orthopedic surgeon for surgery. (4) Screening for diabetes mellitus (DM): Code(s): Z13.1 - Encounter for screening for diabetes mellitus Orders: Orders Comprehensive [place]. Panel Fast Today Z13.1 - Encounter for screening for diabetes mellitus Lipid Panel Today E78.00 - Pure hypercholesterolemia, unspecified Medications: New citalopram (Celexa) 40 mg PO DAILY 90 days 90 tabs 1RF F33.1 - Major depressive disorder, recurrent, moderate Refilled gabapentin 600 mg PO TID 30 days 90 tabs 3RF M54.16 - Radiculopathy, lumbar region Coding Level of Care Code Tele Est Pt Level 4 (94900) Diagnoses MDD (major depressive disorder), recurrent episode, moderate F33.1 LEXY (generalized anxiety disorder) F41.1 Closed displaced fracture of scaphoid of left wrist with delayed healing, unspecified portion of scaphoid, subsequent encounter S62.002G Encounter type: subsequent encounter Scaphoid bone location: unspecified portion of scaphoid Fracture type: closed Fracture alignment: displaced Fracture healing: with delayed healing Screening for diabetes mellitus (DM) Z13.1 Additional Codes LEXY-7 Assessment Billing - LEXY-7 Assessment Tool: LEXY-7 Assessment 34314 ([id number])
[2023-10-30 09:10] VITALS: BMI 27.1
== END 2023-10-30 11:34 | disposition home or self-care (01) ==
LOC: HO.HMGH 09:18
PROVIDERS: PCP Physician Assistant; Visit Provider Physician Assistant
DX: F33.1 Major depressive disorder, recurrent, moderate (principal); F41.1 Generalized anxiety disorder; S62.002G Unspecified fracture of navicular [scaphoid] bone of left wrist, subsequent encounter for fracture with delayed healing; Z13.1 Encounter for screening for diabetes mellitus
CPT/HCPCS: 96127; 99214

== ENCOUNTER 2024-11-25 16:04 | Outpatient (AMB) | payer MEDICAID, SELFPAY ==
--- NOTE | 2024-11-25 16:05 | A.OFFPC_ITS ---
Intake Visit Reasons: med f/u Freight Tallier Required: No Accompanied by: Self / Same As Patient Allergies colchicine [COLCHICINE] Allergy (Mild, Verified 11/25/24 16:42) DIARRHEA baclofen Allergy (Unknown, Verified 11/25/24 16:42) GI upset NSAIDS (Non-Steroidal Anti-Inflamma [NSAIDS (NON-STEROIDAL ANTI-INFLAMMA] Allergy (Unknown, Verified 11/25/24 16:42) SEVERE DIARRHEA paroxetine [Paxil] Allergy (Unknown, Verified 11/25/24 16:42) Increased Anger tizanidine Allergy (Unknown, Verified 11/25/24 16:42) GI upset fluoxetine [From Prozac] Adverse Reaction (Intermediate, Verified 11/25/24 16:42) Depression varenicline [From Chantix] Adverse Reaction (Intermediate, Verified 11/25/24 16:42) mouth soars Medication List - Last Reconciled 11/25/24 by Henri Davidson PA-C amoxicillin 500 mg PO Q8H 7 days citalopram (Celexa) 40 mg PO DAILY 90 days clonazepam 2 mg (2 x 1 mg) PO BEDTIME 30 days gabapentin 600 mg PO TID 30 days nicotine (polacrilex) 4 mg buccal Q8H PRN 30 days tramadol 50 mg PO Q8H PRN 28 days Tobacco use date assessed: 11/25/24 Fall risk assessment: No Falls in past year Last assessed Fall Risk: 11/25/24 Dental Screening Dental Screen Date: 11/25/24 Did you have a dental visit in the last 12 months?: No Did you have a dental problem in the last 6 months where you did not have access to dental care?: No Was dental information given to patient?: No HPI med f/u HPI Details Patient is a 64-year-old female being evaluated today via telephone. Patient has a past medical history significant for tobacco dependency, cervical and lumbar spine disc disease, major depressive disorder, PTSD and hyperlipidemia. Patient has been struggling with keeping consistent job and her also has dementia which has been hard on her. Concern--> has been having an upper respiratory infection over the last week.. Tobacco dependency: Continues to smoke cigarettes and does understand she needs to quit. She does have some interested in trying nicotine replacement. .. Depression:? She reports she has been more depressed lately due to her health issues and financial issues. Has been on Celexa 40 mg though does not find that is helpful. .. Anxiety: Does use clonazepam 2 mg on a daily basis. She feels she would like to wean off of clonazepam in the near future. She is trying to establish a new job at this point. She continues on Celexa which has been helpful for her anxiety as well. She is not interested in speaking with a mental health therapist at this time. .. Chronic cervical/ lumbar spine pain: Continues to have lumbar spine pain to which she report tramadol works somewhat. Xrays of lumbar spine --> there is mild ventral spondylosis throughout lumbar spine. also in review of MRI abd showing There is a mild old-appearing L1 vertebral body compression fracture. She also does have moderate to severe cervical spondylosis and spine stenosis. Was seen by a surgeon in the past whom recommended surgery though patient declined. She continues to use tramadol 50 mg q.8 hours in gabapentin 600 t.i.d. with good relief of her pain. We did discuss the habit-forming nature of this medication and patient does understands the need to wean down on dose. [facility] Medical History Femur fracture, left Acute meniscal tear of left knee Lumbar degenerative disc disease MDD (major depressive disorder), recurrent episode, moderate Post traumatic stress disorder (PTSD) LEXY (generalized anxiety disorder) Surgical History History of arthroscopic knee surgery History of ankle surgery Family History Father Leukemia Mother No problems noted. Brother CVA (cerebral vascular accident) A-fib Sister Rheumatoid arthritis Social History Housing: House Alcohol intake: never Patient Tobacco Use Status: Current everyday Tobacco user Tobacco use type: Cigarette Cigarette Packs Per Day: 0.5 Cigarettes Per Day: 10 e-Cigarette/Vaping Use: Never Used Second Hand Smoke Exposure: No service: No Current occupational status: unemployed Cognitive needs: No Hearing needs: No Vision needs: Yes (Glasses) Questionnaire PHQ-9 Over the last 2 weeks, how often have you been bothered by any of the following problems? 1. Little interest or pleasure in doing things: more than half the days 2. Feeling down, depressed, or hopeless: nearly every day 3. Trouble falling or staying asleep, or sleeping too much: nearly every day 4. Feeling tired or having little energy: more than half the days 5. Poor appetite or overeating: several days 6. Feeling bad about yourself - or that you are a failure or have let yourself or your family down: nearly every day 7. Trouble concentrating on things, such as reading the newspaper or watching television: more than half the days 8. Moving or speaking so slowly that other people could have noticed. Or the opposite - being so fidgety or restless that you have been moving around a lot more than usual: more than half the days 9. Thoughts that you would be better off or of hurting yourself in some way: more than half the days Total score: 20 Depression Screening Interpretation: Positive Depression Screening Follow-up: Existing condition Depression Screening Done: Yes 94399 - PHQ-9 Billing: Yes Source: Developed by Drs. Reji Aragon, Arleen Murry, Edwin Aguero and colleagues, with an educational jose from [employer]. Thrive Questionnaire Date Thrive assessed: 11/25/24 I am a: Patient What is your living situation today?: I have a steady place to live Within the past 12 months, did the food you bought not last and you didn't have the money to get more?: Never true Within the past 12 months, did you worry whether your food would run out before you got money to buy more?: Never true Do you have trouble paying for medicines?: No Do you have trouble getting transportation to medical appointments?: No Do you have trouble paying your heating and electricity bill?: No Do you have trouble taking care of your child, family member or friend?: No Do you have trouble with day-to-day activities such as bathing, preparing meals, shopping, managing finances, etc.?: No Are you currently unemployed and looking for a job?: No Are you interested in more education?: No Please select the resources that you would like help with: None Currently or been in a relationship where the following occur: No concerns reported THRIVE Score: 0 AUDIT C Alcohol Use Questionnaire (AUDIT-C) 1. How often do you have a drink containing alcohol?: Never 3. How often do you have six or more drinks on one occasion?: Never Total Score: 0 LEXY-7 AMB Questionnaire LEXY-7 Date LEXY - 7 assessed: 11/25/24 Feeling nervous, anxious, or on edge: 3 = Nearly every day Not being able to stop or control worryin = Nearly every day Worrying too much about different things: 3 = Nearly every day Trouble relaxin = Nearly every day Being so restless that it is hard to sit still: 3 = Nearly every day Becoming easily annoyed or irritable: 1 = Several days Feeling afraid as if something awful might happen: 3 = Nearly every day Total LEXY-7 score (0-4 normal; 5-9 mild; 10-14 moderate; 15-21 severe): 19 Source: Developed by Drs. Reji Aragon, Arleen Murry, Edwin Aguero and colleagues, with an educational jose from [employer]. LEXY-7 Assessment Billing LEXY-7 Assessment Tool: LEXY-7 Assessment 43539 Review of Systems Const Denies headache(s) Eyes Denies loss of vision ENT Denies vertigo, Denies dizziness, Denies headache(s) and Denies sore throat Card Denies chest pain, Denies leg edema and Denies lightheadedness Resp Denies cough, Denies hemoptysis and Denies wheezing GI Denies abdominal pain, Denies melena, Denies constipation, Reports diarrhea and Denies vomiting Denies urinary frequency, Denies dysuria and Denies urinary urgency Musc Reports back pain, Reports arthralgias, Denies joint swelling, Denies numbness and Denies tingling Neuro Denies behavioral changes, Denies vertigo, Denies dizziness, Denies headache(s), Denies loss of vision, Denies memory loss, Denies numbness and Denies tingling Psych Reports anxiety, Denies behavioral changes, Reports depression, Denies memory loss and Denies panic attacks Alireza/Lymph Denies easy bleeding and Denies easy bruising Aller/Immun Denies wheezing Physical exam (Primary Care) Tobacco/Smoking Status: Tobacco use Status Tobacco use date assessed 11/25/24 11/25/24 16:10 Patient Tobacco Use Status Current everyday Tobacco 11/25/24 16:10 Tobacco use type Cigarette 11/25/24 16:10 e-Cigarette/Vaping Use Never Used 11/25/24 16:10 Are you ready to quit: Yes Tobacco cessation counseling provided: Yes Items discussed: Nicotine replacement Relapse Prevention: discussed the importance of a supportive environment, discussed negative mood or depression after quitting, weight gain after smoking is common and discussed dietary, exercise and/or lifestyle changes Number of minutes spent counselin CPT code: 02309 - 4-10 Minutes PHQ-9: PHQ-9 Score PHQ-9: Total score 20 11/26/24 08:11 Depression Screening Interpretation: Positive Depression Screening Follow-up: Existing condition Thrive Assessment: Date of Thrive Assessment Date Thrive assessed 11/25/24 11/25/24 16:10 Currently or been in a relationship where the following occur: No concerns reported Telehealth Telehealth Telehealth Platform: Telephone Location of provider rendering services: practice address Location of patient: address on file Patient Identification confirmed using: Name, : Yes Telehealth method: voice only Patient verbally consented to treatment: Yes Patient verbally consented to billing insurance company: Yes Patient informed of any privacy concerns related to visit: Yes Minutes spent on Phone/Video with Pt.: 11 Coding Level of Care Code Tele Est Pt Level 4 (68816) Diagnoses Lumbar radiculopathy, chronic M54.16 MDD (major depressive disorder), recurrent episode, moderate F33.1 Bronchitis J40 Tobacco dependence F17.200 LEXY (generalized anxiety disorder) F41.1 Additional Codes LEXY-7 Assessment Billing - LEXY-7 Assessment Tool: LEXY-7 Assessment 86014 ([id number]) PHQ-9 - 32682 - PHQ-9 Billing: Yes ([id number]) Vital Signs *Quality* - CPT code: 60371 - 4-10 Minutes ([id number]) Assessment & Plan Assessment & Plan (1) Lumbar radiculopathy, chronic: Code(s): M54.16 - Radiculopathy, lumbar region Category: Medical Plan: As per HPI patient has history of cervical and lumbar disc disease. She does use tramadol and gabapentin for her pain relief with decent affect We did discuss the habit-forming nature of tramadol she does understand this. (2) MDD (major depressive disorder), recurrent episode, moderate: Code(s): F33.1 - Major depressive disorder, recurrent, moderate Category: Medical Plan: Patient's PHQ-9 score positive for moderate depression which has been existing condition for her. She continues on Celexa 40 mg with decent relief. She is not interested in speaking with a mental health therapist at this time. She does have life stressors including employment and her 's mental capacity. (3) Bronchitis: Code(s): J40 - Bronchitis, not specified as acute or chronic Category: Medical Plan: Has developed an upper respiratory bronchitis. Unfortunately still smoking. Wi ll supply patient with amoxicillin to help with the possible bacterial pneumonia. (4) Tobacco dependence: Code(s): F17.200 - Nicotine dependence, unspecified, uncomplicated Category: Medical Plan: Patient does understand she needs to quit smoking. She is willing to try the nicotine lozenges again. (5) LEXY (generalized anxiety disorder): Code(s): F41.1 - Generalized anxiety disorder Category: Medical Plan: Patient's LEXY-7 score positive for anxiety which has been existing condition for her. She continues with the use of 2 mg of clonazepam every day. She does understand she has a dependency to benzodiazepines. She will like to wean her clonazepam dose over long period of time. Will continue to work with her on this Medications: New clonidine HCl 0.2 mg PO BEDTIME 30 tabs 1RF 30 days F41.1 - Generalized anxiety disorder Refilled tramadol 50 mg PO Q8H PRN 84 tabs 3RF pain 28 days M54.16 - Radiculopathy, lumbar region nicotine (polacrilex) 4 mg buccal Q8H PRN 81 ea 0RF nicotine cravings 30 days F17.200 - Nicotine dependence, unspecified, uncomplicated amoxicillin 500 mg PO Q8H 21 tabs 0RF 7 days J32.9 - Chronic sinusitis, unspecified
--- OUTSIDE RECORDS SUMMARY | 2024-11-25 16:38 | XMS_ITS | Encounter Summary ---
Author Organization [facility] Address [address] [place] [id number] Care Team Providers Care Ophthalmic Surgeon Name Role Phone Deepak Reeves Primary Care Provider [phone] Henri Davidson Primary Care Provider + Latoya Tellez TRADE PROMOTION ANALYST Unavailable [phone] Encounter Details Date Type Department Care Team (Late st Contact Info) Description 07/18/2023 [facility] Surg Order [facility] [place] [address] Henri Beavers MD [address] [place] [address] Social History Tobacco Use Types Packs/Day Years Used Date Smoking Tobacco: Some Days Cigarettes Smokeless Tobacco: Never Alcohol Use Standard Drinks/Week Comments No 0 (1 standard drink = 0.6 oz pur e alcohol) AUDIT-C Answer Date Recorded Frequency of Alcohol Consumption Never 10/06/2019 Average Number of Drinks Not on file 019 Frequency of Binge Drinking Not on file 09/09 Sex and Gender Information Value Date Recorded Sex Assigned at Female 12/12/2022 1:04 PM EST Gender Identity Female 12/12/2022 1:04 PM EST Sexual Orientation Heterosexual (straight) 09/30 2:49 PM EST documented as of this encounter Plan of Treatment Not on file documented as of this encounter Visit Diagnoses Not on filedocumented in this encounter Care Teams Ophthalmic Surgeon Relationship Specialty Start Date End Date Deepak Reeves [address] [place] [address] [place] [address] PCP - General Medicine Hospitalist 07/30/18 09/29/23 [place] [address] [place] [phone] PCP - General Adult Health - PA/APNP/CARBON FURNACE OPERATOR HELPER/CONCRETE PUDDLER 09/30/23 Latoya Tellez LCSW [address] [place] [address] Chlorine Cells Operator Clinical Social Work 10/02/23 documented as of this encounter
--- OUTSIDE RECORDS SUMMARY | 2024-11-25 16:38 | XMS_ITS | Encounter Summary ---
Author Organization [facility] Address [address] [place] [address] Care Team Providers Care Design Cell Engineer Name Role Phone Henri Davidson Primary Care Provider + Latoya TellezW Unavailable [phone] Encounter Details Date Type Department Care Team (Late st Contact Info) Description 05/11/2024 4:21 PM EDT Hospital Encounter [facility] [address] [place] [phone] Landon Campos MD [address] [place] [address] Social History Tobacco Use Types Packs/Day Years Used Date Smoking Tobacco: Some Days Cigarettes Smokeless Tobacco: Never Alcohol Use Standard Drinks/Week Comments No 0 (1 standard drink = 0.6 oz pur e alcohol) AUDIT-C Answer Date Recorded Q1: How often do you have a drink containing alcohol? 4 or more times a week 10/03/2023 Q2: How many drinks containi ng alcohol do you have on a typical day when you are drinking? 5 or 6 Q3: How often do you have si x or more drinks on one occasion? Weekly 10/03/2023 Sex and Gender Information Value Date Recorded Sex Assigned at Female 12/12/2022 1:04 PM EST Gender Identity Female 12/12/2022 1:04 PM EST Sexual Orientation Heterosexual (straight) 09/30 2:49 PM EST documented as of this encounter Plan of Treatment Not on file documented as of this encounter Procedures Procedure Name Priority Date/Time Associated Diagnosis Comments XR ANKLE 3+ VIEWS-RIGHT STAT 05/11/2024 4:31 PM EDT Pain and swelling of right ankle documented in this encounter Results * XR Ankle 3+ views-Right (05/11/2024 4:31 PM EDT) Anatomical Region Laterality Modality Ankle Right Computed Radiogr aphy 05/11/2024 4:35 PM EDT Impressions 05/11/2024 4:36 PM EDT 1. ??No acute fracture or dislocation. 2. ??Diffuse soft tissue swelling around the ankle. 3. ??Mild arthritic changes. Narrative 05/11/2024 4:36 PM EDT EXAM: XR ANKLE 3+ VIEWS-RIGHT on 05/11/2024 4:21 PM CLINICAL HISTORY: pain over posterior ankle noticed after running 2-3 weeks but no trauma/injury. COMPARISONS: None TECHNIQUE: AP, lateral, and oblique radiographs of the right ankle were obtained. FINDINGS: There is normal mineralization without acute fracture. The base of the fifth metatarsal is intact. The alignment is anatomic without subluxation or dislocation. The medial and lateral clear spaces are symmetric. Mild arthritic changes are noted. Diffuse soft tissue swelling around the ankle. Small plantar calcaneal spur. Procedure Note Danny Estrada MD - 05/11/2024 EXAM: XR ANKLE 3+ VIEWS-RIGHT on 05/11/2024 4:21 PM CLINICAL HISTORY: pain over posterior ankle noticed after running 2-3 weeks but notrauma/injury. COMPARISONS: None TECHNIQUE: AP, lateral, and oblique radiographs of the right ankle wereobtained. FINDINGS: There is normal mineralization without acute fracture. The base of thefifth metatarsal is intact. The alignment is anatomic without subluxationor dislocation. The medial and lateral clear spaces are symmetric. Mildarthritic changes are noted. Diffuse soft tissue swelling around the ankle. Small plantar calcaneal spur. IMPRESSION: 1. No acute fracture or dislocation. 2. Diffuse soft tissue swelling around the ankle. 3. Mild arthritic changes. Kaci Rao APRN IMG DIAGNOSTIC IMAG ING ORDERABLES documented in this encounter Visit Diagnoses Not on filedocumented in this encounter Care Teams Design Cell Engineer Relationship Specialty Start Date End Date Henri Davidson PA [facility] [place] [phone] PCP - General Adult Health - PA/APNP/SENIOR GEOTECHNICAL ENGINEER/WOOD HEEL FITTER MACHINE 09/30/23 Latoya Tellez LCSW [address] [place] [address] Quality Rep Clinical Social Work 10/02/23 documented as of this encounter
--- OUTSIDE RECORDS SUMMARY | 2024-11-25 16:38 | XMS_ITS | Encounter Summary ---
Author Organization [facility] Address [address] [place] [address] Care Team Providers Care Entry Driver Operator Name Role Phone Lala Deepak Primary Care Provider [phone] Henri Davidson Primary Care Provider + Latoya Tellez IC DESIGNER CUSTOM Unavailable Encounter Details Date Type Department Care Team (Late st Contact Info) Description 12/13/2022 Erroneous Encounter [facility] CONVERSION DEPT [address] [place] [phone] Roxy Urbina MD [address] [place] [address] Social History Tobacco Use Types Packs/Day Years Used Date Smoking Tobacco: Every Day Smokeless Tobacco: Never Alcohol Use Standard Drinks/Week [...] Orientation Heterosexual (straight) 09/30 2:49 PM EST COVID-19 Exposure Response Date Recorded In the last 10 days, have yo u been in contact with someone who was confirmed or suspected to have Coronavirus/COVID-19? No / Unsure 12/12/2022 1:04 PM EST documented as of this encounter Plan of Treatment Not on file documented as of this encounter Visit Diagnoses Not on filedocumented in this encounter Care Teams Entry Driver Operator Relationship Specialty Start Date End Date Deepak Reeves [address] [place] [address] [place] [address] PCP - General Medicine Hospitalist 07/30/18 09/29/23 [place] [address] [place] [phone] PCP - General Adult Health - PA/JOCELYNN/AUTOMOTIVE SERVICE DIRECTOR/SHEET METAL WELDER 09/30/23 Latoya Tellez LCSW [address] [place] [address] Switchman Clinical Social Work 10/02/23 documented as of this encounter
--- OUTSIDE RECORDS SUMMARY | 2024-11-25 16:38 | XMS_ITS | Clinical Summary ---
Author Organization [facility] Address [address] [place] [address] Care Team Providers Care Policy Cancellation Clerk Name Role Phone Henri Davidson Primary Care Provider [phone] Social History Tobacco Use Types Packs/Day Years Used Date Smoking Tobacco: Never Assessed Sex and Gender Information Value Date Recorded Sex Assigned at Not on file Gender Identity Not on file Sexual Orientation Not on file Plan of Treatment Health Maintenance Due Date Last Done Comments Hepatitis C Screening 1960 COVID-19 Vaccine (#1) 04/19/1961 Depression Screening 1972 Preventative Health Evaluation 1978 DTap / Tdap / Td (1 - Tdap) 1979 Cervical Cancer Screening (P ap Smear) 1981 Colon Cancer Screening (Colonoscopy) 2005 Breast Cancer Screening (Mammogram) 2010 Shingrix-Zoster Vaccine (1 of 2) 2010 Influenza Vaccine (#1) 2024 Pneumococcal Vaccine (1 of 1 - PCV) 2025 RSV Adult > 60+ Yrs or Pregn ant (1 - 1-dose 75+ series) 2035 Hepatitis B Vaccines Aged Out No long er eligible based on patient's age to complete this topic Pneumococcal Vaccine Aged Out No long er eligible based on patient's age to complete this topic RSV Ped < 20 months Aged Out No longe r eligible based on patient's age to complete this topic Care Teams Policy Cancellation Clerk Relationship Specialty Start Date End Date Henri Davidson PA [address] [place] [phone] PCP - General Physician Lead Process Engineer 08/04/19
--- OUTSIDE RECORDS SUMMARY | 2024-11-25 16:38 | XMS_ITS | Encounter Summary ---
Author Organization [facility] Address [address] [place] [address] Care Team Providers Care Retail Chain Store Area Supervisor Name Role Phone Deepak Reeves Primary Care Provider [phone] Henri Davidson Primary Care Provider + Latoya Tellez BOTTLING LINE OPERATOR Unavailable [phone] Encounter Details Date Type Department Care Team (Late st Contact Info) Description 09/20/2023 Scanned Document [facility] [address] [phone] Henri Beavers MD [address] [place] [address] [place] [address] Social History Tobacco Use Types Packs/Day Years [...] on filedocumented in this encounter Care Teams Retail Chain Store Area Supervisor Relationship Specialty Start Date End Date Deepak Reeves [address] [place] [address] [place] [address] PCP - General Medicine Hospitalist 07/30/18 09/29/23 Henri Davidson PA [address] [facility] [place] [phone] PCP - General Adult Health - PA/APNP/MARBLE AND GRANITE POLISHER/DISTRIBUTION ASSOCIATE 09/30/23 Latoya Tellez LCSW [address] [place] [address] Ordnance Mechanic Clinical Social Work 10/02/23 documented as of this encounter
--- OUTSIDE RECORDS SUMMARY | 2024-11-25 16:38 | XMS_ITS | Encounter Summary ---
Author Organization Formerly [facility] Address [address] [place] [address] Care Team Providers Care Cat Sitter Name Role Phone Deepak Reeves Primary Care Provider [phone] Encounter Details Date Type Department Care Team (Late st Contact Info) Description 04/23/2023 5:53 PM EDT Hospital Encounter [facility] [address] [place] [address] Landon Campos MD [address] [place] [address] Social History Tobacco Use Types Packs/Day Years [...] Name Priority Date/Time Associated Diagnosis Comments XR WRIST 3+ VIEWS-LEFT STAT 04/23/2023 5:57 PM EDT Acute pain of left wrist documented in this encounter Results * XR Wrist 3+ views-Left (04/23/2023 5:57 PM EDT) Anatomical Region Laterality Modality Wrist Left Computed Radiogr aphy 04/23/2023 6:14 PM EDT Impressions 04/23/2023 6:17 PM EDT 1. ??Osteopenia, limiting evaluation. 2. ??Chronic scaphoid waist deformity. 3. ??Nonspecific soft tissue swelling along the dorsal aspect of the wrist. 4. ??No definite acute fracture. Narrative 04/23/2023 6:17 PM EDT COMPARISON(S): Left wrist radiograph dated 12/22/2022. TECHNIQUE: AP, lateral, and oblique radiographs of the left wrist were obtained. FINDINGS: Bones are osteopenic, limiting evaluation. There is a chronic scaphoid waist deformity. No definite acute fracture. No dislocation. There is nonspecific soft tissue swelling along the dorsal aspect of the wrist. Procedure Note Danny Estrada MD - 04/23/2023 COMPARISON(S): Left wrist radiograph dated 12/22/2022. TECHNIQUE: AP, lateral, and oblique radiographs of the left wrist wereobtained. FINDINGS: Bones are osteopenic, limiting evaluation. There is a chronic scaphoidwaist deformity. No definite acute fracture. No dislocation. There isnonspecific soft tissue swelling along the dorsal aspect of the wrist. IMPRESSION: 1. Osteopenia, limiting evaluation. 2. Chronic scaphoid waist deformity. 3. Nonspecific soft tissue swelling along the dorsal aspect of thewrist. 4. No definite acute fracture. Elham Barbosa APRN IMG DIAGNOSTIC IMAGI NG ORDERABLES documented in this encounter Visit Diagnoses Not on filedocumented in this encounter Care Teams Cat Sitter Relationship Specialty Start Date End Date Deepak Reeves [address] [place] [address] [place] [address] PCP - General Medicine Hospitalist 07/30/18 09/29/23 documented as of this encounter
--- OUTSIDE RECORDS SUMMARY | 2024-11-25 16:38 | XMS_ITS | Encounter Summary ---
Author Organization [facility] Address [address] [place] [address] Care Team Providers Care Network Liaison Name Role Phone Lala Deepak Primary Care Provider Encounter Details Date Type Department Care Team (Late st Contact Info) Description 12/12/2022 1:27 PM EST Hospital Encounter [facility] [address] [facility] [place] [phone] Dian Jeff PA [address] [facility] Social History Tobacco Use Types Packs/Day Years [...] suspected to have Coronavirus/COVID-19? No / Unsure 03/11/2023 1:13 PM EDT documented as of this encounter Plan of Treatment Not on file documented as of this encounter Procedures Procedure Name Priority Date/Time Associated Diagnosis Comments XR WRIST 3+ VIEWS-LEFT STAT 12/12/2022 1:32 PM EST Left wrist pain documented in this encounter Results * XR Wrist 3+ views-Left (12/12/2022 1:32 PM EST) Anatomical Region Laterality Modality Wrist Left Computed Radiogr aphy 12/12/2022 1:36 PM EST Impressions 12/12/2022 1:50 PM EST Scaphoid waist fracture. Narrative 12/12/2022 1:50 PM EST PA, lateral, and oblique left wrist views, no prior studies for comparison. History: ??left wrist pain s/p fall. + dorsal and volar tenderness. mild STS. FINDINGS: ??There is a fracture of the scaphoid waist. ??There is soft tissue swelling. ??No other fractures are evident. ??Joint spaces are maintained. Procedure Note Brijesh Silva MD - 12/12/2022 PA, lateral, and oblique left wrist views, no prior studies forcomparison. History: left wrist pain s/p fall. + dorsal and volar tenderness. mildSTS. FINDINGS: There is a fracture of the scaphoid waist. There is softtissue swelling. No other fractures are evident. Joint spaces aremaintained. IMPRESSION: Scaphoid waist fracture. Dian LUNA DIAGNOSTIC IMAGI NG ORDERABLES documented in this encounter Visit Diagnoses Not on filedocumented in this encounter Care Teams Network Liaison Relationship Specialty Start Date End Date Deepak Reeves [address] [place] [address] [place] [address] PCP - General Medicine Hospitalist 07/30/18 09/29/23 documented as of this encounter
--- OUTSIDE RECORDS SUMMARY | 2024-11-25 16:38 | XMS_ITS | Encounter Summary ---
Author Organization [facility] Address [address] [place] [address] Care Team Providers Care Box Press Operator Name Role Phone Deepak Reeves Primary Care Provider [phone] Henri Davidson Primary Care Provider + Latoya Tellez SALES PORTER Unavailable [phone] Encounter Details Date Type Department Care Team (Late st Contact Info) Description 07/30/2018 Documentation [facility] [address] [phone] Lorena Lancaster APRN [address] [place] [address] Social History Tobacco Use Types Packs/Day Years Used Date Smoking Tobacco: Every Day Smokeless Tobacco: Never Alcohol Use Standard Drinks/Week Comments No 0 (1 standard drink = 0.6 oz pur e alcohol) AUDIT-C Answer Date Recorded Frequency of Alcohol Consumption Never 07/30/2018 Average Number of Drinks Not on file 018 Frequency of Binge Drinking Not on file 07/09 Sex and Gender Information Value Date Recorded Sex Assigned at Female 12/12/2022 1:04 PM EST Gender Identity Female 12/12/2022 1:04 PM EST Sexual Orientation Heterosexual (straight) 09/30 2:49 PM EST documented as of this encounter Plan of Treatment Not on file documented as of this encounter Visit Diagnoses Not on filedocumented in this encounter Care Teams Box Press Operator Relationship Specialty Start Date End Date Deepak Reeves [address] [place] [address] [place] [address] PCP - General Medicine Hospitalist 07/30/18 09/29/23 Henri Davidson PA [address] [facility] [place] [address] PCP - General Adult Health - PA/APNP/FINAL INSPECTION SUPERVISOR/ORGANIC PREPARATION ANALYST 09/30/23 Latoya Tellez LCSW [address] [place] [address] Web Systems Developer Clinical Social Work 10/02/23 documented as of this encounter
--- OUTSIDE RECORDS SUMMARY | 2024-11-25 16:38 | XMS_ITS | Encounter Summary ---
Author Organization [facility] Address [address] [place] [address] Care Team Providers Care Survey Instrument Operator Name Role Phone Deepak Reeves Primary Care Provider [phone] Encounter Details Date Type Department Care Team (Late st Contact Info) Description 03/11/2023 1:31 PM EDT Hospital Encounter [facility] [address] [place] [phone] Landon Campos MD [address] [place] [address] Social History Tobacco Use Types Packs/Day Years [...] Name Priority Date/Time Associated Diagnosis Comments XR TIBIA/FIBULA 2 VIEWS-RIGHT STAT 03/11/2023 1:40 PM EDT Right leg pain documented in this encounter Results * XR Tibia/fibula 2 views-Right (03/11/2023 1:40 PM EDT) Anatomical Region Laterality Modality Leg Right Computed Radiogr aphy 03/11/2023 1:44 PM EDT Impressions 03/11/2023 1:44 PM EDT 1. ??No acute fracture or dislocation of the right tibia and fibula. Narrative 03/11/2023 1:44 PM EDT COMPARISON(S): None. TECHNIQUE: AP and lateral radiographs of the right tibia and fibula were obtained. FINDINGS: There is normal mineralization without an acute fracture or dislocation. No appreciable soft tissue swelling is seen. Procedure Note Junior Arreguin MD - 03/11/2023 COMPARISON(S): None. TECHNIQUE: AP and lateral radiographs of the right tibia and fibula wereobtained. FINDINGS: There is normal mineralization without an acute fracture or dislocation.No appreciable soft tissue swelling is seen. IMPRESSION: 1. No acute fracture or dislocation of the right tibia and fibula. Gail Mai PA-C IMG DIAGNOSTIC IM AGING ORDERABLES documented in this encounter Visit Diagnoses Not on filedocumented in this encounter Care Teams Survey Instrument Operator Relationship Specialty Start Date End Date Deepak Reeves [address] [place] [address] [place] [address] PCP - General Medicine Hospitalist 07/30/18 09/29/23 documented as of this encounter
--- OUTSIDE RECORDS SUMMARY | 2024-11-25 16:38 | XMS_ITS ---
Author Name [facility] Organization Unknown History of Medication Use Medication Directions Dispensed Refills Start Date End Date Stat benzonatate (TESSALON) 200 MG capsule Take 1 capsule (200 mg total) by mouth 3 (three) times a day as needed for cough. 07/04/2024 07/12/2024 active LORazepam (ATIVAN) 1 MG tablet Take 1 mg by mouth 3 times daily (every 8 hours) as needed for anxiety. 04/23/2023 active HYDROcodone-acetamin ophen (VICODIN) 5-300 MG per tablet Take 1 tablet by mouth nightly as needed for severe pain. Max Daily Amount: 1 tablet 04/23/2023 05/16/2023 active fluticasone (FloNASE) 50 mcg/spray nasal spray 1 spray into each nostril daily. 07/30/2018 04/23/2023 active oxyCODONE-acetaminop hen (PERCOCET) 5-325 mg per tablet Take 1 tablet by mouth 4 times daily (every 6 hours) as needed for severe pain. Max Daily Amount: 4 tablets 04/25/2023 active Problems Problem Status Onset Date Problem Type Date of Resoluti on Source Anxiety active 2024-02-05 [facility]Act [facility] Alcohol intoxication active 2023-10-03 ProblemAct [facility] Pain from implanted hardware active 2024-03-11 ProblemAct [facility] Depression active 2024-02-05 ProblemAct [facility] Flu-like symptoms active EncounterDiagnosisAct [facility] Acute cough active EncounterDiagnosisAct [facility]
--- OUTSIDE RECORDS SUMMARY | 2024-11-25 16:38 | XMS_ITS | Encounter Summary ---
Author Organization Formerly [facility] Address [address] [place] [address] Care Team Providers Care Authorization Manager Name Role Phone Deepak Reeves Primary Care Provider [phone] Henri Davidson Primary Care Provider + Latoya Tellez CAROUSEL OPERATOR Unavailable [phone] Encounter Details Date Type Department Care Team (Late st Contact Info) Description 09/04/2023 [facility] Surg Order [facility] [address] [phone] Henri Beavers MD [address] [place] [address] [place] [address] Social History Tobacco Use Types Packs/Day Years [...] on filedocumented in this encounter Care Teams Authorization Manager Relationship Specialty Start Date End Date Deepak Reeves [address] [place] [address] [place] [address] PCP - General Medicine Hospitalist 07/30/18 09/29/23 Henri Davidson PA [address] [facility] [place] [address] PCP - General Adult Health - PA/APNP/CNC MILL SET UP OPERATOR/EQUIPMENT SUPERINTENDENT 09/30/23 Latoya Tellez LCSW [address] [place] [address] Oxyacetylene Welder Clinical Social Work 10/02/23 documented as of this encounter
--- OUTSIDE RECORDS SUMMARY | 2024-11-25 16:38 | XMS_ITS | Clinical Summary ---
Author Organization [facility] Address [address] [place] [address] Care Team Providers Care Payment Manager Name Role Phone Henri Davidson Primary Care Provider + Latoya TellezW Unavailable [phone] Allergies Active Allergy Reactions Criticality Noted Date Comments Latex Unknown/Patient and Family Unable to Define Medium 10/06/2019 Nsaids Diarrhea Low 07/30/2018 Medications Medication Sig Dispensed Refills Start Date End Date Status clonazePAM (KlonoPIN) 2 MG tablet Take 2 mg by mouth 2 times daily (every 12 hours) as needed. Active gabapentin (NEURONTIN) 600 MG tablet Take 600 mg by mouth 3 (three) times a day. 12/05/2022 Active busPIRone (BUSPAR) 5 MG tablet Take 5 mg by mouth 3 (three) times a day. 04/20/2023 Active oxyCODONE-acetaminop hen (PERCOCET) 5-325 mg per tabletIndications:Cl osed nondisplaced fracture of middle third of scaphoid of left wrist with routine healing, subsequent encounter Take 1 tablet by mouth 4 times daily (every 6 hours) as needed for severe pain. Max Daily Amount: 4 tablets 20 tablet 04/25/2023 Active HYDROcodone-acetamin ophen (VICODIN) 5-300 MG per tabletIndications:Cl osed displaced fracture of middle third of scaphoid of left wrist with routine healing, subsequent encounter Take 1 tablet by mouth nightly as needed for severe pain. Max Daily Amount: 1 tablet 20 tablet 05/16/2023 Active FLUoxetine (PROzac) 20 MG capsule 20 MG ORALLY DAILY 08/13/2023 Act daryl traMADol (ULTRAM) 50 MG tablet 50 MG ORALLY EVERY 8 HOURS NEEDED FOR PAIN FOR 28 DAYS Active methylPREDNISolone (MEDROL DOSEPAK) 4 MG tabletIndications:Pa in and swelling of right ankle follow package directions 21 tablet 05/11/2024 Active proMETHAZINE-dextrom ethorphan (proMETHAZINE-DM) 6.25-15 MG/5ML syrupIndications:URI with cough and congestion Take 5 mL by mouth every 4 (four) hours as needed for cough. 120 mL 07/04/2024 Active Active Problems Problem Noted Date Diagnosed Date Pain from implanted hardware 03/11/2024 Anxiety 02/05/2024 Depression 02/05/2024 Alcohol intoxication 10/03/2023 Family History Medical History Relation Name Comments Depression Cousin Suicide completion Cousin Relation Name Status Comments Cousin Father Alive Mother Social History Tobacco Use Types Packs/Day Years Used Date Smoking Tobacco: Some Days Cigarettes Smokeless Tobacco: Never Tobacco Cessation:Ready to Q uit: Not Asked; Counseling Given: Not Answered Alcohol Use Standard Drinks/Week Comments No 0 [...] Orientation Heterosexual (straight) 09/30 2:49 PM EST Last Filed Vital Signs Vital Sign Reading Time Taken Comments Blood Pressure 111/76 07/08/2024 2:23 PM EDT Pulse 65 07/08/2024 2:23 PM EDT Temperature 36.4 ??C (97.6 ??F) 07/08/2024 2:23 PM ED T Respiratory Rate 16 07/08/2024 2:23 PM EDT Oxygen Saturation 97% 07/08/2024 2:23 PM EDT Inhaled Oxygen Concentration - - Weight 81.6 kg (180 lb) 07/08/2024 2:23 PM EDT Height 172.7 cm (5' 8 ) 07/08/2024 2:23 PM EDT Body Mass Index 27.37 07/08/2024 2:23 PM EDT Plan of Treatment Health Maintenance Due Date Last Done Comments Hepatitis C Virus Screening 1960 Pneumococcal Vaccine: Pediatric (0-5 Years) and At-Risk Patients (6 to 49 Years) (1 of 2 - PCV) 1966 HIV Screening 1973 DTaP/Tdap/Td Vaccines (1 - Tdap) 1979 Pneumococcal Vaccines 50+ (1 of 2 - PCV) 1979 Pap Smear (Ages 21-65) 1981 Mammogram 2000 Colonoscopy 2005 Zoster (Shingles) Vaccine (1 of 2) 2010 Influenza Vaccine 05/08/2024 COVID-19 Vaccine (3 - 2023-2 5 season) 2024 05/05/2022, 04/12/2022 RSV Vaccine 60 years and older and Patients (1 - 1-dose 75+ series) 2035 Hepatitis B Vaccines Aged Out No long er eligible based on patient's age to complete this topic Care Teams Payment Manager Relationship Specialty [place] [address] [place] [phone] PCP - General Adult Health - CHRISTA/JOCELYNN/INSULATION TECHNICIAN/AVIATION ALL SOURCE INTELLIGENCE 09/30/23 Latoya Tellez LCSW [address] [place] [address] Order Control Clerk Blood Bank Clinical Social Work 10/02/23
--- OUTSIDE RECORDS SUMMARY | 2024-11-25 16:38 | XMS_ITS | Encounter Summary ---
Author Organization [facility] Address [address] [place] [address] Care Team Providers Care Bioprocess Engineer Name Role Phone Lala Deepak Primary Care Provider [phone] Encounter Details Date Type Department Care Team (Late st Contact Info) Description 07/30/2018 6:43 PM EDT Hospital Encounter [facility] [address] [place] [address] Lorena Lancaster APRN [address] [place] [address] Social History Tobacco Use Types Packs/Day Years [...] as of this encounter Plan of Treatment Pending Results Name Type Priority Associated Diagnoses Date /Time XR Chest 2 views Imaging STAT Cough 07/30/2018 6:45 PM EDT documented as of this encounter Visit Diagnoses Not on filedocumented in this encounter Care Teams Bioprocess Engineer Relationship Specialty Start Date End Date Deepak Reeves [address] [place] [address] [place] [address] PCP - General Medicine Hospitalist 07/30/18 09/29/23 documented as of this encounter
--- OUTSIDE RECORDS SUMMARY | 2024-11-25 16:39 | XMS_ITS | Encounter Summary ---
Author Organization [facility] Address [address] [place] [address] Care Team Providers Care Hat Body Sorter Name Role Phone Henri Davidson Primary Care Provider + Latoya TellezW Unavailable [phone] Encounter Details Date Type Department Care Team (Late st Contact Info) Description 07/08/2024 2:46 PM EDT Hospital Encounter [facility] [address] [place] [phone] Landon Campos MD [address] [place] [address] Social History Tobacco Use Types Packs/Day Years [...] Name Priority Date/Time Associated Diagnosis Comments XR CHEST 2 VIEWS STAT 07/08/2024 2:50 PM EDT Acute cough documented in this encounter Results * XR Chest 2 views (07/08/2024 2:50 PM EDT) Anatomical Region Laterality Modality Chest Computed Radiogr aphy 07/08/2024 2:57 PM EDT Impressions 07/08/2024 2:58 PM EDT No acute infiltrate Narrative 07/08/2024 2:58 PM EDT EXAM: XR CHEST 2 VIEWS on 07/08/2024 2:46 PM CLINICAL HISTORY: BYRON PURI is a 63 years old patient with a submitted history of persistent cough and fever. ADDITIONAL HISTORY: Acute cough COMPARISONS: July 30, 2018 TECHNIQUE: ??2 views of the chest performed. FINDINGS: ?? Normal cardiac size No airspace consolidation No pleural effusions Procedure Note Domingo Frost MD - 07/08/2024 EXAM: XR CHEST 2 VIEWS on 07/08/2024 2:46 PM CLINICAL HISTORY: BYRON PURI is a 63 years old patient with a submitted history ofpersistent cough and fever. ADDITIONAL HISTORY: Acute cough COMPARISONS: July 30, 2018 TECHNIQUE: 2 views of the chest performed. FINDINGS: Normal cardiac size No airspace consolidation No pleural effusions IMPRESSION: No acute infiltrate Georgi GOODWIN IMG DIAGNOSTIC IMAGI NG ORDERABLES documented in this encounter Visit Diagnoses Not on filedocumented in this encounter Care Teams Hat Body Sorter Relationship Specialty Start Date End Date Henri Davidson PA [address] [place] [address] PCP - General Adult Health - PA/APNP/RIGGER HELPER/WASH OPERATOR 09/30/23 Latoya Tellez LCSW [address] [place] [address] Hand Knitter Clinical Social Work 10/02/23 documented as of this encounter
== END 2024-11-25 17:14 | disposition home or self-care (01) ==
LOC: HO.HMCH 16:04
PROVIDERS: PCP Physician Assistant; Visit Provider Physician Assistant
DX: J40 Bronchitis, not specified as acute or chronic (principal); M54.16 Radiculopathy, lumbar region; F33.1 Major depressive disorder, recurrent, moderate; F17.200 Nicotine dependence, unspecified, uncomplicated; F41.1 Generalized anxiety disorder

== ENCOUNTER → 2024-11-25 16:04 | Outpatient (BNVA) | payer SELFPAY | PROVIDERS: PCP Physician Assistant; Visit Provider Physician Assistant | DX: M54.16 Radiculopathy, lumbar region (principal); F33.1 Major depressive disorder, recurrent, moderate; J40 Bronchitis, not specified as acute or chronic; F41.1 Generalized anxiety disorder; F17.210 Nicotine dependence, cigarettes, uncomplicated | CPT/HCPCS: 96127 ==

== ENCOUNTER 2025-03-05 09:55 | Outpatient (AMB) | payer SELFPAY ==
--- OUTSIDE RECORDS SUMMARY | 2025-03-05 10:16 | XMS_ITS | Clinical Summary ---
Author Organization [facility] Address [address] [place] [address] Care Team Providers Care Bulk Mail Technician Name Role Phone Henri Davidson Primary Care Provider + Latoya TellezW Unavailable [phone] Allergies Active Allergy Reactions Criticality Noted Date Comments Latex Unknown/Patient and Family Unable to Define Medium 10/06/2019 Nsaids Diarrhea Low 07/30/2018 Medications * This document contains information received from the source organization and may not represent a complete record from that organization. clonazePAM (KlonoPIN) 2 MG tablet Take 2 mg by mouth 2 times daily (every 12 hours) as needed. Active gabapentin (NEURONTIN) 600 MG tablet Take 600 mg by mouth 3 (three) times a day. 3 Active busPIRone (BUSPAR) 5 MG tablet Take 5 mg by mouth 3 (three) times a day. 3 Active oxyCODONE-acetami nophen (PERCOCET) 5-325 mg per tabletIndications :Closed nondisplaced fracture of middle third of scaphoid of left wrist with routine healing, subsequent encounter Take 1 tablet by mouth 4 times daily (every 6 hours) as needed for severe pain. Max Daily Amount: 4 tablets 20 tablet 3 Active HYDROcodone-aceta minophen (VICODIN) 5-300 MG per tabletIndications :Closed displaced fracture of middle third of scaphoid of left wrist with routine healing, subsequent encounter Take 1 tablet by mouth nightly as needed for severe pain. Max Daily Amount: 1 tablet 20 tablet 3 Active FLUoxetine (PROzac) 20 MG capsule 20 MG ORALLY DAILY 3 Active traMADol (ULTRAM) 50 MG tablet 50 MG ORALLY EVERY 8 HOURS NEEDED FOR PAIN FOR 28 DAYS Active methylPREDNISolon e (MEDROL DOSEPAK) 4 MG tabletIndications :Pain and swelling of right ankle follow package directions 21 tablet 4 Active proMETHAZINE-dext romethorphan (proMETHAZINE-DM) 6.25-15 MG/5ML syrupIndications: URI with cough and congestion Take 5 mL by mouth every 4 (four) hours as needed for cough. 120 mL 4 Active Active Problems Problem Noted Date Diagnosed Date Pain from implanted hardware 03/11/2024 Anxiety 02/05/2024 Depression 02/05/2024 Alcohol intoxication 10/03/2023 Encounters Date Type Department Care Team Description 02/26/2025 1:55 PM EDT Office Visit [facility] [address] [phone] Amaury Srinivasan MD Miles, Stephanie Jr., SUPERINTENDENT [employer] Pain and swelling of right ankle (Primary Dx) 02/25/2025 Travel from Last 3 Months Family History Medical History Relation Name Comments [...] more drinks on one occasion? Weekly 10/03/2023 Comments No Sex and Gender Information Value Date Recorded Sex Assigned at Female 12/12/2022 1:04 PM EST Legal Sex Female 12:29 PM EDT Gender Identity Female 12/12/2022 1:04 PM EST Sexual Orientation Heterosexual (straight) 09/30 2:49 PM EST Last Filed Vital Signs Vital Sign Reading Time Taken Comments Blood Pressure 118/77 02/26/2025 2:15 PM EDT Pulse 64 02/26/2025 2:15 PM EDT Temperature 36.3 ??C (97.4 ??F) 02/26/2025 2:15 PM ED T Respiratory Rate 12 02/26/2025 2:15 PM EDT Oxygen Saturation 96% 02/26/2025 2:15 PM EDT Inhaled Oxygen Concentration - - Weight 81.6 kg (180 lb) 02/26/2025 2:15 PM EDT Height 172.7 cm (5' 8 ) 02/26/2025 2:15 PM EDT Body Mass Index 27.37 02/26/2025 2:15 PM EDT Plan of Treatment Health Maintenance Due Date Last Done Comments Hepatitis C Virus Screening 1960 HIV Screening 1973 DTaP/Tdap/Td Vaccines (1 - Tdap) 1979 Pneumococcal Vaccines 50+ (1 of 2 - PCV) 1979 Pap Smear (Ages 21-65) 1981 Mammogram 2000 Colonoscopy 2005 Zoster (Shingles) Vaccine (1 of 2) 2010 COVID-19 Vaccine (2023-2 5 season) 2024 05/05/2022, 04/12/2022 Influenza Vaccine 05/08/2025 RSV Vaccine 60 years and older and Patients (1 - 1-dose 75+ series) 2035 Hepatitis B Vaccines Aged Out No long er eligible based on patient's age to complete this topic Insurance [facility] [place] [address] [facility] Care Teams Bulk Mail Technician Relationship Specialty [place] [address] [place] [phone] PCP - General Adult Health - CHRISTA/JOCELYNN/MEDICAL INFORMATION OFFICER/SUPERINTENDENT [employer]AL 09/30/23 Latoya Tellez LCSW [address] [place] [address] Oven Heater Clinical Social Work 10/02/23
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
[2025-03-05 10:19] VITALS: BP 110/70; PULSE 56; TEMP 36.2; O2SAT 98; BMI 28.0
== END 2025-03-05 11:15 | disposition home or self-care (01) ==
LOC: HO.HMCH 09:56
PROVIDERS: PCP Physician Assistant; Visit Provider Physician Assistant
DX: F41.1 Generalized anxiety disorder (principal); R22.1 Localized swelling, mass and lump, neck; F33.1 Major depressive disorder, recurrent, moderate; F17.200 Nicotine dependence, unspecified, uncomplicated; E78.00 Pure hypercholesterolemia, unspecified; K08.9 Disorder of teeth and supporting structures, unspecified

== ENCOUNTER → 2025-03-05 09:55 | Outpatient (BNVA) | payer SELFPAY | PROVIDERS: PCP Physician Assistant; Visit Provider Physician Assistant | DX: F41.1 Generalized anxiety disorder (principal); R22.1 Localized swelling, mass and lump, neck; E78.00 Pure hypercholesterolemia, unspecified; K08.9 Disorder of teeth and supporting structures, unspecified; F33.1 Major depressive disorder, recurrent, moderate; F17.210 Nicotine dependence, cigarettes, uncomplicated; Z79.899 Other long term (current) drug therapy | CPT/HCPCS: 96127; 99212 ==

== ENCOUNTER 2025-03-18 10:52 | Outpatient (AMB) | payer OTHER, SELFPAY ==
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
[2025-03-18 11:08] VITALS: BP 114/68; PULSE 54; TEMP 36.3; O2SAT 98; BMI 28.3
--- OUTSIDE RECORDS SUMMARY | 2025-03-18 12:22 | XMS_ITS | Clinical Summary ---
Author Organization [facility] Address [address] [place] [address] Care Team Providers Care Mule Packer Name Role Phone Henri Davidson Primary Care Provider + Latoya TellezW Unavailable [phone] Allergies Active Allergy Reactions Criticality Noted Date [...] Description 02/26/2025 1:55 PM EDT Office Visit [facility] [address] [phone] Amaury Srinivasan MD Miles, Stephanie Jr., PLATING INSPECTOR Pain and swelling of right ankle (Primary [...] patient's age to complete this topic Insurance [facility] [place] [address] [facility] Care Teams Mule Packer Relationship Specialty [place] [address] [place] [id number] PCP - General Adult Health - CHRISTA/JOCELYNN/COAT REPAIR INSPECTOR/PLATING INSPECTOR 09/30/23 Latoya Tellez LCSW [address] [place] [address] [employer] Clinical Social Work 10/02/23
== END 2025-03-18 12:07 | disposition home or self-care (01) ==
PROVIDERS: PCP Physician Assistant; Visit Provider Physician Assistant
DX: S96.911A Strain of unspecified muscle and tendon at ankle and foot level, right foot, initial encounter (principal); S99.911A Unspecified injury of right ankle, initial encounter

== ENCOUNTER 2025-03-18 10:52 | Outpatient (REF) | payer OTHER, SELFPAY ==
--- NOTE | ~2025-03-18 | XR_ITS ---
CLINICAL HISTORY: R22.1 - Localized swelling, mass and lump, neck 5 views cervical spine Comparison: None Findings: Straightening of the normal cervical lordosis. Moderate diffuse degenerative changes with near-complete disc space loss from C4 through C7. Facet joints are normally imbricating. No prevertebral soft tissue edema. Impression: Advanced degenerative changes. No definite acute process. This document has been electronically signed by: Iban Wise MD on 03/19/2025 07:08:18
--- NOTE | ~2025-03-18 | XR_ITS ---
CLINICAL HISTORY: S99.911A - Unspecified injury of right ankle, initial encounter 3 view right ankle Comparison: None Findings: No acute fractures. Ankle mortise intact. Mild soft tissue edema. Mild degenerative changes. Small calcaneal spur. No ankle effusion. No radiopaque foreign body. IMPRESSION: Mild soft tissue edema. No fracture or malalignment. Chronic changes. This document has been electronically signed by: Iban Wise MD on 03/19/2025 07:08:53
== END 2025-03-18 10:53 | disposition home or self-care (01) ==
LOC: HO.XRAY 10:52
PROVIDERS: PCP Physician Assistant; Visit Provider Physician Assistant
DX: S96.911A Strain of unspecified muscle and tendon at ankle and foot level, right foot, initial encounter (principal); S99.911A Unspecified injury of right ankle, initial encounter; M54.2 Cervicalgia; W10.9XXA Fall (on) (from) unspecified stairs and steps, initial encounter; Y93.9 Activity, unspecified; Y92.9 Unspecified place or not applicable; Y99.9 Unspecified external cause status
CPT/HCPCS: 72040; 73600; 99212

== ENCOUNTER → 2025-03-18 12:07 | Outpatient (BNV) | payer OTHER, SELFPAY | PROVIDERS: PCP Physician Assistant; Visit Provider Radiology Vascular & Interventional Radiology | DX: M50.30 Other cervical disc degeneration, unspecified cervical region (principal); S99.911A Unspecified injury of right ankle, initial encounter | CPT/HCPCS: 72040; 73600 ==

== ENCOUNTER 2025-07-17 15:33 | Outpatient (AMB) | payer SELFPAY ==
--- NOTE | 2025-07-17 15:55 | A.OFFPC_ITS ---
Vital Signs 07/17/25 15:56 Height 5 ft 8 in Weight 183 lb 2 oz BMI 27.8 BP 122/68 Blood Pressure Location Lt brachial Position Sitting Pulse 62 Pulse Source Pulse Oximeter Temp 96.9 F Temp Source Temporal Artery Scan Pulse Oximetry (%) 98 Oxygen Delivery Method Room Air Intake Visit Reasons: med follow up Intake Note: Patient is here to follow up on med review. Endocrinology Nurse Required: No Ore Dressing Engineer: Not Required per policy Accompanied by: Self / Same As Patient Allergies colchicine (COLCHICINE) Allergy (Mild, Verified 07/17/25 15:56) DIARRHEA baclofen Allergy (Unknown, Verified 07/17/25 15:56) GI upset NSAIDS (Non-Steroidal Anti-Inflamma (NSAIDS (NON-STEROIDAL ANTI-INFLAMMA) Allergy (Unknown, Verified 07/17/25 15:56) SEVERE DIARRHEA paroxetine (Paxil) Allergy (Unknown, Verified 07/17/25 15:56) Increased Anger tizanidine Allergy (Unknown, Verified 07/17/25 15:56) GI upset fluoxetine (From Prozac) Adverse Reaction (Intermediate, Verified 07/17/25 15:56) Depression varenicline (From Chantix) Adverse Reaction (Intermediate, Verified 07/17/25 15:56) mouth soars Tobacco use date assessed: 07/17/25 Fall risk assessment: No Falls in past year Last assessed Fall Risk: 07/17/25 Dental Screening Dental Screen Date: 11/25/24 HPI HPI Comments History of Present Illness Details The patient is a 64-year-old female presenting with anxiety and a skin condition. The patient has been using clonazepam, 2 mg at night, for sleep, which she has been taking for a long time. She expressed a desire to wean off clonazepam, as she is aware it is not the best medication for sleep. She has been off the medication for two days and reports feeling awful, indicating withdrawal symptoms. The patient also presented with a skin condition on her legs, which she suspects to be psoriasis. She reports being under a lot of stress, which may be exacerbating the condition. The patient has a history of psoriasis, and the current presentation is consistent with her past experiences. [facility] Medical History Femur fracture, left Acute meniscal tear of left knee Lumbar degenerative disc disease MDD (major depressive disorder), recurrent episode, moderate Post traumatic stress disorder (PTSD) LEXY (generalized anxiety disorder) Surgical History History of arthroscopic knee surgery History of ankle surgery Family History Father Leukemia Mother No problems noted. Brother CVA (cerebral vascular accident) A-fib Sister Rheumatoid arthritis Social History Housing: House Alcohol intake: never Patient Tobacco Use Status: Current everyday Tobacco user Tobacco use type: Cigarette Cigarette Packs Per Day: 0.5 Cigarettes Per Day: 10 e-Cigarette/Vaping Use: Never Used Second Hand Smoke Exposure: Yes service: No Current occupational status: unemployed Cognitive needs: No Hearing needs: No Vision needs: Yes (Glasses) Questionnaire Thrive Questionnaire Date Thrive assessed: 03/04/25 LEXY-7 AMB Questionnaire LEXY-7 Date LEXY - 7 assessed: 03/05/25 Source: Developed by Drs. Reji Aragon, Arleen Murry, Edwin Aguero and colleagues, with an educational jose from [employer]. Review of Systems Const Details: Positives besides what was mentioned in HPI are in BOLD Constitutional: No Weight Change, No Fever, No Chills, No Night Sweats, No Fatigue, No Malaise ENT/Mouth: No Hearing Changes, No Ear Pain, No Nasal Congestion, No Sinus Pain, No Hoarseness, No sore throat, No Rhinorrhea, No Swallowing Difficulty Eyes: No Eye Pain, No Swelling, No Redness, No Foreign Body, No Discharge, No Vision Changes Cardiovascular: No Chest Pain, No SOB, No PND, No Dyspnea on Exertion, No Orthopnea, No Claudication, No Edema, No Palpitations Respiratory: No Cough, No Sputum, No Wheezing, No Smoke Exposure, No Dyspnea Gastrointestinal: No Nausea, No Vomiting, No Diarrhea, No Constipation, No Pain, No Heartburn, No Anorexia, No Dysphagia, No Hematochezia, No Melena, No Flatulence, No Jaundice Genitourinary: No Dysmenorrhea, No DUB, No Dyspareunia, No Dysuria, No Urinary Frequency, No Hematuria, No Urinary Incontinence, No Urgency, No Flank Pain, No Urinary Flow Changes, No Hesitancy Musculoskeletal: No Arthralgias, No Myalgias, No Joint Swelling, No Joint Stiffness, No Back Pain, No Neck Pain, No Injury History Skin: No Skin Lesions, No Pruritis, No Hair Changes, No Breast/Skin Changes, No Nipple Discharge Neuro: No Weakness, No Numbness, No Paresthesias, No Loss of Consciousness, No Syncope, No Dizziness, No Headache, No Coordination Changes, No Recent Falls Psych: No Anxiety/Panic, No Depression, No Insomnia, No Personality Changes, No Delusions, No Rumination, No SI/HI/AH/VH, No Social Issues, No Memory Changes, No Violence/Abuse Hx., No Eating Concerns Heme/Lymph: No Bruising, No Bleeding, No Transfusions History, No Lymphadenopathy Endocrine: No Polyuria, No Polydipsia, No Temperature Intolerance Physical exam (Primary Care) Vital Signs: Last Vital Signs Temp 96.9 F 07/17/25 15:56 Pulse 62 07/17/25 15:56 BP 122/68 07/17/25 15:56 Pulse Ox 98 07/17/25 15:56 Oxygen Delivery Method Room Air 07/17/25 15:56 BMI result Body Mass Index 27.8 Tobacco/Smoking Status: Tobacco use Status Tobacco use date assessed 07/17/25 07/17/25 16:01 Patient Tobacco Use Status Current everyday Tobacco 07/17/25 16:01 Tobacco use type Cigarette 07/17/25 16:01 e-Cigarette/Vaping Use Never Used 07/17/25 16:01 Thrive Assessment: Date of Thrive Assessment Date Thrive assessed 03/04/25 07/17/25 16:01 Const Other: Pertinent findings are in BOLD GENERAL APPEARANCE NAD, activity normal for age, well developed/ well nourished, no cyanosis, pallor, or diaphoresis. EYES lids/conjunctiva normal. EARS/NOSE/THROAT Mucous membranes moist, nares normal, lips/teeth normal uvula midline without oral pharyngeal erythema, exudate or swelling TMs normal bilaterally. No lymphangitis/lymphedema. HEAD/NECK normocephalic atraumatic, no facial trauma, neck is supple. RESPIRATORY respiratory effort normal, speaks in full sentences, no tripod position, no accessory muscle use. Lungs clear to auscultation without rhonchi, wheezes, rales CARDIAC Regular rate and rhythm, no edema. ABDOMINAL Soft, ND/NT. No evidence of fluid wave. No pulsatile masses on exam, rebound tenderness, Hines sign or pain over Mcburney's point. MUSCLES/EXTREMITIES No abnormal range of motion, no swelling. SKIN Warm, pink and dry. No rashes, dermatoses, petechiae or lesions. NEUROLOGICAL Speech is clear and appropriate. Normal level of consciousness. Gait and coordination are normal. 5/5 strength in all extremities. PSYCH Normal mood and affect. Judgement/competence is appropriate Coding Level of Care Code Tele Est Pt Level 4 (78226) Diagnoses Anxiety F41.9 Skin lesion L98.9 Assessment & Plan Assessment & Plan (1) Anxiety: Code(s): F41.9 - Anxiety disorder, unspecified Category: Medical Plan: Clonazepam refilled. Advised on weaning her off the medication. Patient is interested. Advised referring her to psychiatry. Patient declined. (2) Skin lesion: Code(s): L98.9 - Disorder of the skin and subcutaneous tissue, unspecified Category: Medical Plan: Cerave cream. Referral to dermatology recommended but the patient has issues with insurance. Medications: New ceramides 1,3,6-II (CeraVe topical cream) 1 appl topical QID PRN 453 grams 0RF dry skin Refilled clonazepam administer 30 minutes before bedtime 2 mg (2 x 1 mg) PO BEDTIME 60 tabs 0RF 30 days F41.1 - Generalized anxiety disorder
[2025-07-17 15:56] VITALS: BP 122/68; PULSE 62; TEMP 36.1; O2SAT 98; BMI 27.8
== END 2025-07-17 16:38 | disposition home or self-care (01) ==
PROVIDERS: PCP Physician Assistant; Visit Provider Internal Medicine
DX: F41.9 Anxiety disorder, unspecified (principal); L98.9 Disorder of the skin and subcutaneous tissue, unspecified

== ENCOUNTER → 2025-07-17 15:33 | Outpatient (BNVA) | payer SELFPAY | PROVIDERS: PCP Physician Assistant; Visit Provider Internal Medicine | DX: F41.9 Anxiety disorder, unspecified (principal); L98.9 Disorder of the skin and subcutaneous tissue, unspecified | CPT/HCPCS: 99212 ==